=== PATIENT | male | born 1930 | race Caucasian/White ===

== ENCOUNTER 2018-03-12 22:06 | Inpatient (IN) | payer MEDICARE ==
[~2018-03-12] VITALS: Ht 180.3 cm; Wt 114.3 kg
[~2018-03-12 22:06] MED LIST: ASPIR 8181 M1 PO; B-121000 MCG PO; COLACE100 MG PO; COMBIVENT RESPIM4 GM IH; COZAAR 50 MG TA50 M2 PO; D3 + K2 DOTS 11 EACH PO; DESONIDE CR. 1515 GM TOP; FISH OIL 1,001000 M2 PO; FOLIC ACID 40400 MCG PO; KETOCONAZOLE60 GM TP; LANTUS100 UNIT/M SUBQ; LASIX 40 MG TAB40 M2 PO; MAGOX 400400 MG PO; MELATONIN3 MG PO; METFORMIN HCL500 MG PO; MIRALAX17 GM PO; NORVASC10 MG PO; NOVOLIN 70100 UNIT/1 SQ; OMEPRAZOLE20 M1 PO; ZOCOR20 MG PO
[2018-03-12] MEDS ORDERED: COMBIVENT INH (22:19)
[2018-03-12] MEDS ORDERED: PROSCAR 5MG TABL5 MG PO (22:20)
[2018-03-12] MEDS ORDERED: FISH OIL 1,001000 M2 PO (22:20)
[2018-03-12] MEDS ORDERED: FLUOCINOLONE AC15 GM (22:22)
[2018-03-12] MEDS ORDERED: VITAMIN D3400 UNIT PO (22:24)
[2018-03-12] MEDS ORDERED: MACROBID 100 M100 M2 PO (22:24)
[2018-03-12 23:05] LABS: ABSOLUTE EOSINOPHILS 0.1 thou/uL (0.0-0.7); ABSOLUTE LYMPHOCYTES 0.9 thou/uL (0.8-5.3); ABSOLUTE MONOCYTES 0.4 thou/uL (0.0-1.2); BASOPHILS 0.8 %; EOSINOPHILS 3.1 %; HEMOGLOBIN 13.4 gm/dL (14.0-18.0); LYMPHOCYTES 20.3 %; MCH 31.2 pg (26.0-34.0); MCHC 33.5 g/dL (28.0-37.0); MCV 93.2 fL (80.0-100.0); MPV 8.3 fl. (7.2-11.1); NUCLEATED RBCS 0 /100WBC; PLATELET COUNT* 107 thou/uL (150-400); POLYS 66.8 %; RDW-CV 13.3 % (10.5-14.5); WBC 4.4 thou/uL (4.0-11.0)
[2018-03-12 23:08] LABS: ANION GAP 6 mmol/L (7-16); BUN 32 mg/dL (7-18); CALCIUM 8.8 mg/dL (8.5-10.1); CHLORIDE 99 mmol/L (98-107); CO2 32 mmol/L (21-32); CREATININE 1.4 mg/dL (0.6-1.3); GLUCOSE 204 mg/dL (70-99); SODIUM 137 mmol/L (136-145)
[2018-03-12 23:09] LABS: POTASSIUM 4.7 mmol/L (3.5-5.1)
[2018-03-12 23:17] LABS: PROTIME 10.1 Seconds (9.20-11.50)
[2018-03-12 23:19] LABS: ALKALINE PHOSPHATASE 98 U/L (46-116); LIPASE 110 U/L (73-393); NT-PRO BRAIN NAT PEPTIDE 198 pg/mL (<300); SGOT 50 U/L (15-37); SGPT 46 U/L (30-65); TOTAL BILIRUBIN 0.6 mg/dL (<0.1-1.0); TOTAL PROTEIN 7.9 g/dL (6.4-8.2); TROPONIN-I LEVEL <0.06 ng/mL (<0.06)
[2018-03-13 01:15] VITALS: BP 145/46
[2018-03-13 01:31] VITALS: BP 149/60
[2018-03-13 04:00] VITALS: BP 133/64
[2018-03-13 08:00] VITALS: BP 156/60
--- NOTE | 2018-03-13 09:41 | EKG ---
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1930 Requested By: Mary Jane Garrett Order Number: [id number] MD: Perry Gonzales Measurements Intervals [place] Rate: 79 P: 74 IN: 170 QRS: 0 QRSD: 157 T: 102 QT: 429 QTc: 492 Interpretive Statements Sinus rhythm Left bundle branch block Compared to ECG 09/12/2016 22:58:21 Atrial abnormality no longer present Electronically Signed On 03-13-2018 9:41:16 CDT by Perry Gonzales [email or web address] <ELECTRONICALLY SIGNED> By: Perry Gonzales MD, [facility] 03/13/18 0941 2212 2212 Perry Gonzales MD, [facility] /EPI
[2018-03-13 11:00] VITALS: BP 136/57
--- NOTE | 2018-03-13 12:09 | CON ---
[address] [address] CONSULTATION Name: ALEIDA BOBO Room: [address] IN .R.#: [id number] Admission: 03/13/18 Attend Phys: Jamila Maurer MD Discharge: 03/16/18 Date of : [birth year] Report #: [id number] THIS REPORT FOR: //name// CC: Cornelius Ley MD CARDIOLOGY CONSULTATION INDICATION: Chest pain. HISTORY OF PRESENT ILLNESS: The patient is a very pleasant 88-year-old gentleman with a history of coronary artery disease. He reports myocardial infarction 30 years ago, for which he initially had percutaneous transluminal coronary angioplasty. He describes having a stent placed possibly a few years later. He states that he has not had any intervention since that time. He has had subsequent stress testing that has been unrevealing. Cardiac risk factors include hypertension, diabetes and dyslipidemia. He quit smoking remotely. Family history was also positive for coronary artery disease. He began to have midsternal chest pain and pressure last night. [facility], who felt he may be having a heart attack and brought him to the hospital. His pain has since resolved. His troponins are unremarkable. EKG shows sinus rhythm with left bundle branch block. At the time of interview, the patient is without cardiac complaint. PAST MEDICAL HISTORY: 1. Coronary artery disease. 2. Type 2 diabetes mellitus. 3. COPD. 4. Chronic renal insufficiency, creatinine 1.4. 5. GERD. 6. Arthritis. 7. Peripheral neuropathy. HOME MEDICATIONS: Amlodipine 10 mg daily, losartan 100 mg daily, folate 400 mcg daily, vitamin B12 at 1000 mcg daily, vitamin D3/K2 at 1000 units daily, furosemide 40 mg daily, MiraLax 17 grams daily, Colace 100 mg at bedtime, melatonin 3 mg at bedtime, desonide cream applied topically as directed, ketaconazole applied topically as directed, Lantus at bedtime, Novolin 70/30 q.i.d., aspirin 81 mg daily, simvastatin 20 mg at bedtime, omeprazole 20 mg daily, magnesium oxide 400 mg b.i.d., Combivent inhaler 1 puff q.i.d., fish oil 1000 mg daily, metformin 1000 mg b.i.d., finasteride 5 mg daily, fluocinolone topically as directed, Macrobid 100 mg b.i.d. and vitamin D3 at 400 units daily. ALLERGIES: LISINOPRIL. [address] [place] [address] CONSULTATION Name: JERAMIE,KAY Jalen Room: [address]#: [id number] Admission: 03/13/18 Attend Phys: Jamila Maurer MD Discharge: 03/16/18 Date of : [birth year] Report #: [id number] FAMILY HISTORY: The patient's father had a heart attack at age 85. SOCIAL HISTORY: The patient is . He and his live in [place], [place]. 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 He does not smoke. He does not drink alcohol. REVIEW OF SYSTEMS: A 14-point review of systems is positive for chest discomfort, as outlined above, dyspnea on exertion and orthopnea. He reports type 2 diabetes mellitus, insulin requiring. He reports venous blood clots remotely. He reports that he wears glasses, without acute visual loss. He has decreased hearing. PHYSICAL EXAMINATION: VITAL SIGNS: Stable. Blood pressure 156/60, pulse 65 and regular. GENERAL: This is a moderately obese, pleasant elderly white male in no distress. Mood and affect appropriate. HEENT: The patient is wearing glasses. Extraocular muscles intact. Mucous membranes are moist. NECK: Examination of the neck shows no jugular venous distention. I do not appreciate carotid bruit. CHEST: Examination of the chest reveals diminished breath sounds throughout with slight expiratory wheezes. CARDIAC EXAMINATION: Reveals a regular rhythm with normal S1 and S2. I do not appreciate gallop or murmur. ABDOMEN: Examination of the abdomen reveals normal bowel sounds. The abdomen is protuberant. EXTREMITIES: Examination of the extremities shows chronic venous stasis changes and 1-2+ pitting edema to the mid tibia bilaterally. SKIN: Dry. RADIOGRAPHIC DATA: A 12-lead EKG shows sinus rhythm with left bundle branch block. LABORATORY DATA: Labs are reviewed. Sodium 137, potassium 4.7, chloride 99, bicarbonate 32, BUN 32, creatinine 1.4 and serum glucose 204. LFTs within normal limits. Calcium and magnesium within normal limits. Troponin less than 0.06. NT-proBNP 198. Coags within normal limits. White blood cell count 4.4, hemoglobin 13.4 and platelet count 107,000. IMPRESSION AND RECOMMENDATIONS: 1. Chest discomfort, concerning for possible angina. The patient's initial troponin is unremarkable. We will repeat another troponin at this time. EKG shows a left bundle branch block. We will obtain noninvasive stress testing, if the patient's enzymes remain unremarkable. 2. Hypertension. Continue medications outlined above [place] [address] CONSULTATION Name: ALEIDA BOBO Room: [address] IN [facility]#: [id number] Admission: 03/13/18 Attend Phys: Jamila Maurer MD Discharge: 03/16/18 Date of : [birth year] Report #: [id number] needed. 3. Dyslipidemia. The patient currently on simvastatin. We will continue and check fasting lipid profile. 4. Diabetes per primary physician. 5. Chronic left bundle branch block. 6. Chronic renal insufficiency, appears stable. <ELECTRONICALLY SIGNED> By: Perry Gonzales MD, FACC 03/13/18 1209 1106 1200[facility] Sofy Gonzales MD, FACC /nt
[2018-03-13 19:50] VITALS: BP 144/67
[2018-03-14 00:47] VITALS: BP 107/46
[2018-03-14 04:00] VITALS: BP 105/60
[2018-03-14 05:24] LABS: CHOLESTEROL 115 mg/dL (<200); HDL CHOLESTEROL 34 mg/dL (>40); LDL CHOLESTEROL 48 mg/dL (<100); TC:HDL 3.4 Ratio (Not establshd); TRIGLYCERIDE 165 mg/dL (<150); VLDL 33 mg/dL (<40)
[2018-03-14 05:29] LABS: SERUM ASSESSMENT Clear
[2018-03-14 08:00] VITALS: BP 125/55
[2018-03-14 11:00] VITALS: BP 126/48
[2018-03-14 16:00] VITALS: BP 118/53
[2018-03-14 19:50] VITALS: BP 126/52
[2018-03-15] VITALS: BP 125/53
[2018-03-15 02:05] LABS: GLYCOHEMOGLOBIN (HGB A1C) 7.2 % (4.8-5.6)
[2018-03-15 03:36] VITALS: BP 110/47
[2018-03-15 08:00] VITALS: BP 135/59
[2018-03-15 12:00] VITALS: BP 121/52
[2018-03-15 16:00] VITALS: BP 115/97
[2018-03-15 18:00] LABS: HEMATOCRIT 39.5 % (42.0-52.0); HEMOGLOBIN 13.1 gm/dL (14.0-18.0); MCH 31.1 pg (26.0-34.0); MCHC 33.1 g/dL (28.0-37.0); MCV 93.9 fL (80.0-100.0); MPV 8.2 fl. (7.2-11.1); NUCLEATED RBCS 0 /100WBC; PLATELET COUNT* 103 thou/uL (150-400); RBC 4.21 mil/uL (4.50-6.00); RDW-CV 13.8 % (10.5-14.5); WBC 5.3 thou/uL (4.0-11.0)
[2018-03-15 18:14] LABS: CALCIUM 9.3 mg/dL (8.5-10.1); CREATININE 1.5 mg/dL (0.6-1.3); MAGNESIUM 2.4 mg/dL (1.8-2.4); POTASSIUM 4.5 mmol/L (3.5-5.1); TOTAL BILIRUBIN 0.7 mg/dL (<0.1-1.0); TOTAL PROTEIN 7.8 g/dL (6.4-8.2)
[2018-03-15 18:17] LABS: ABSOLUTE LYMPHOCYTES 0.6 thou/uL (0.8-5.3); ABSOLUTE MONOCYTES 0.3 thou/uL (0.0-1.2); ABSOLUTE NEUTROPHILS 4.3 thou/uL (1.6-8.1); PLATELET ESTIMATE ADEQUATE
[2018-03-15 20:00] VITALS: BP 105/55
[2018-03-16] VITALS: BP 109/46; BP 162/66
[2018-03-16 03:44] VITALS: BP 116/62
[2018-03-16 08:21] VITALS: BP 126/60
[2018-03-16 12:14] VITALS: BP 105/49
--- NOTE | 2018-03-16 15:15 | CARDNUC ---
[place] [address] CARDIAC NUCLEAR IMAGING REPORT Name: ALEIDA BOBO Room: [address]#: [id number] Admission: 03/13/18 Attend Phys: Jamila Maurer, Discharge: 03/16/18 Date of : [birth year] Date of Service: 03/16/18 1515 Report #: [id number] THIS REPORT FOR: //name// APPROVED REPORT Study performed: 03/15/2018 12:48:00 Indication: Chest pain, CAD Patient Location: In-Patient Room #: 227 Stress Tech: April Paz Stress Nurse: Neisha Owens RN NM Tech:GERARDO Ng Ht: 5 ft 11 in Wt: 252 lbs BSA: 2.33 m2 BMI: 35.1 Medical History Medical History: CAD s/p RI, CAD s/p stent, HTN, Hyperlipidemia, Diabetic Insulin, COPD Medications: amlodipine, atorvastatin, losartan, asa Allergies: No known drug allergies Cardiac Risk Factors: Age,, Diabetes (insulin), HTN, Hyperlipidemia Previous Cardiac Procedures: Myocardial infarction, PCI Exercise History: Sedentary Resting Data Rest SPECT myocardial perfusion imaging was performed in supine position 30 minutes following the intravenous injection of 38.2 mCi of Tc-99m Sestamibi. Time of rest injection: 1230 Date: 03/16/2018 Time of rest imagin The images were gated to evaluate regional wall motion and calculate left ventricular ejection fraction. Administration Route: IV Administration Site: Right Pharmacologic Stress Pharmacologic stress test was performed by injecting Regadenoson 0.4 mg IV push over 10-15 seconds immediately followed by the intravenous injection of 33.8 mCi of Tc-99m Sestamibi. Time of stress injection: 1600 Date: 03/15/2018 Administration Route: IV Administration Site: [place] [address] CARDIAC NUCLEAR IMAGING REPORT Name: ALEIDA BOBO Room: [address]#: [id number] Admission: 03/13/18 Attend Phys: Jamila Maurer, Discharge: 03/16/18 Date of : [birth year] Date of Service: 03/16/18 1515 Report #: [id number] Gated Stress SPECT was performed 45 minutes after stress injection. The images were gated to evaluate regional wall motion and calculate left ventricular ejection fraction. Stress Test Details Stress Test: Pharmacologic stress testing performed using 0.4 mg of regadenoson per 5 mL given IV over 10 seconds. Reason for pharmacologic stress test: LBBB. Reversal agent Aminophyline 50 mg, given intravenously for headache, hypotension. HR Resting HR: 76 bpm Max Heart Rate (APMHR): 132 bpm Max HR Achieved: 88 bpm Target HR (85% APMHR): 112 bpm % of APMHR: 66 Recovery HR: 77 bpm BP Resting BP: 126/58 mmHg Max BP: 107/50 mmHg ECG Resting ECG: Sinus Rhythm, LBBB Stress ECG: Sinus Rhythm, LBBB ST Change: None Arrhythmia: None Recovery ECG: Sinus Rhythm, LBBB Recovery ST Change: None Recovery Arrhythmia: None Clinical Reason for Termination: Completed protocol Stress Symptoms: Headache, hypotension Exercise duration: 0 min sec Exercise capacity: 1.0 METs The patient tolerated Lexiscan infusion without symptoms. Nurse Comments Patient had no chest pain, but did complain of MIRANDA and lightheadness, bp 99/48, post lexiscan, 50mg aminophylline IV for c/o at 1615. Patient states feels much better at 1617, bp 115/59. Stress ECG Conclusion The baseline 12-lead electrocardiogram shows sinus rhythm with left bundle-branch block. EKGs obtained during and post Lexiscan infusion show sinus rhythm with left bundle-branch block[place] [address] CARDIAC NUCLEAR IMAGING REPORT Name: ALEIDA BOBO Room: [address] IN [facility].#: [id number] Admission: 03/13/18 Attend Phys: Jamila Maurer, Discharge: 03/16/18 Date of : [birth year] Date of Service: 03/16/18 1515 Report #: [id number] significant stress-induced arrhythmias. Study Quality Study: Good Artifact: No artifact Study Data At rest, the left ventricular ejection fraction was 35%.. Post stress, the left ventricular ejection was 29%.. TID = 1.05. Perfusion Myocardial perfusion defect show a severe in intensity moderate size fixed defect involving the anterior wall and apex. No reversible defects are identified. Wall Motion On gated studies there is severe global hypokinesis with akinesis of the septum as well as distal to apical anterior wall and apex. Nuclear Conclusion ECG Findings: non-diagnostic Clinical Findings: negative for ischemia Nuclear Findings: negative for ischemia Exercise Capacity: not assessed Left Ventricular Function: abnormal Risk Study: high Myocardial perfusion images show a fixed defect involving the distal anterior wall and apex consistent with prior infarct. No reversible defects are identified. There is severe left ventricular systolic dysfunction consistent with ischemic cardiomyopathy. This is a high risk study based on severe left ventricular systolic dysfunction. Interpreted by: Perry Gonzales M.D. [facility] Electronically Approved: 03/16/2018 15:15:19 <Conclusion> The baseline 12-lead electrocardiogram shows sinus rhythm with left bundle-branch block. EKGs obtained during [place] [address] CARDIAC NUCLEAR IMAGING REPORT Name: ALEIDA BOBO Room: [address] IN [facility]#: [id number] Admission: 03/13/18 Attend Phys: Jamila Maurer, Discharge: 03/16/18 Date of : [birth year] Date of Service: 03/16/18 1515 Report #: [id number] show sinus rhythm with left bundle-branch block. There were no significant stress-induced arrhythmias. <ELECTRONICALLY SIGNED> By: Perry Gonzales MD, FACC 03/16/18 1515 1515 1515 Perry Gonzales MD, FACC /INF
[2018-03-16 15:19] VITALS: BP 105/49
--- NOTE | 2018-03-23 16:18 | CON ---
[address] [address] CONSULTATION Name: ALEIDA BOBO Room: [address] IN M.R.#: [id number] Admission: 03/13/18 Attend Phys: Jamila Maurer MD Discharge: 03/16/18 Date of : [birth year] Report #: [id number] THIS REPORT FOR: //name// CC: Jamila Ley MD DICTATED BY: Paloma Salcedo [facility] DATE OF SERVICE: 03/15/2018 Please note at the time of this dictation, the patient was seen and physically examined by myself. REASON FOR CONSULTATION: Constipation, possible fecal impaction. HISTORY OF PRESENT ILLNESS: This is an 88-year-old male presented to the Emergency Room with intermittent chest pain in which she had been having pressure and onset for about an hour and some shortness of air. The patient has a history of having OR back in the late . He denied any nausea, vomiting or any abdominal pain at that time. In discussing with the patient, he has never had an EGD or colonoscopy done in the past. He states that his bowels normally move about every 3-4 days and then, he will sometimes have to try MiraLax, stool softeners to help get his bowels to move, which are usually hard and dry. The patient has already received a suppository this morning, but was straining and it was expelled already. He is pending going down for a stress test at this time. ALLERGIES: LISINOPRIL. MEDICATIONS: From home include Norvasc, Cozaar, folic acid, B12, vitamin D, Lasix, MiraLax, Colace, melatonin, desonide cream, ketaconazole cream, Lantus, NovoLog, aspirin, Zocor, omeprazole, magnesium oxide, Combivent, fish oil, Glucophage, Proscar, . PAST MEDICAL HISTORY: COPD, adrenal abnormality, history of pancreatic cyst, history of anemia, hyperlipidemia, chronic kidney disease, GERD, arthritis, history of an OR with stent many years ago and angioplasty, diabetic and some peripheral neuropathy. PAST SURGICAL HISTORY: Negative. FAMILY HISTORY: Mother, breast cancer. SOCIAL HISTORY: Denies any alcohol, tobacco or illegal drug use and [place] [address] CONSULTATION Name: JERAMIE,ALEIDA D Room: [address]#: [id number] Admission: 03/13/18 Attend Phys: Jamila Maurer MD Discharge: 03/16/18 Date of : [birth year] Report #: [id number] REVIEW OF SYSTEMS: Twelve-point review of systems is essentially negative except what is mentioned in the HPI. PHYSICAL EXAMINATION: VITAL SIGNS: Temperature 36.9, pulse 68, respirations 18, blood pressure 135/59. HEART: Regular rate and rhythm. LUNGS: Diminished, but clear. ABDOMEN: Very round, positive bowel sounds in all 4 quadrants with no masses or some slight tenderness noted in the left lower quadrant area. LABORATORY DATA: Hemoglobin 13.4, hematocrit 40, white count is 4.4, platelets 107. PT is 10.1. INR is 1.0. Sodium 137, potassium 4.7, chloride 99, CO2 32, BUN is 32, creatinine 1.4, GFR is 48, glucose is 204. LFTs: Total bilirubin 0.6, alkaline phosphatase 98, ALT 46, AST is 50. CT of the abdomen and pelvis, mainly shows constipation throughout. IMPRESSION: 1. Constipation usual 3-4 days. 2. Thrombocytopenia. 3. Family history, mother, breast cancer. 4. Chest pain, history of myocardial infarction. PLAN: 1. Dulcolax tablets 20 mg now. 2. If no results from above, we will give the patient a soapsuds enema. 3. The patient needs a better bowel regimen, 2-3 senna b.i.d. secondary to his renal function. No MiraLax. Thank you for allowing us to participate in this patient's care. Please do not hesitate to call with any questions in regard to this consult. <ELECTRONICALLY SIGNED> By: Sunshine Yen MD 03/23/18 1618 1207 1856Sunshine Yen MD /nt
--- NOTE | 2018-03-23 16:18 | CON ---
[address] [address] CONSULTATION Name: ALEIDA BOBO Room: [address] IN M.R.#: [id number] Admission: 03/13/18 Attend Phys: Jamila Maurer MD Discharge: 03/16/18 Date of : [birth year] Report #: [id number] THIS REPORT FOR: //name// CC: Jamila Ley DATE OF SERVICE: 03/15/2018 ADDENDUM I have personally seen and examined the patient and reviewed labs and imaging. The patient with no previous history of endoscopic evaluation, who presents with abdominal pain and constipation. Based on imaging, he has fecal impaction. He was given some stool softener and has had a small bowel movement. Since the patient is not interested in any procedures, we will consider to treat him conservatively with using bowel regimen. We will monitor him closely and make further recommendations. <ELECTRONICALLY SIGNED> By: Sunshine Yen MD 03/23/18 1618 1529 0224Sunshine Yen MD /nt
== END 2018-03-16 16:00 | disposition home or self-care (01) | DRG 391 ==
LOC: M.ERS 22:06 → M.TBA-ER 03-13 00:29 → M.2W 03-13 00:29 → EDSEX 03-16 16:00
PROVIDERS: Family Medicine; Internal Medicine; Internal Medicine Cardiovascular Disease; Personal Emergency Response Attendant; ADMIT Internal Medicine
DX: K21.9 Gastro-esophageal reflux disease without esophagitis (principal); J96.90 Respiratory failure, unspecified, unspecified whether with hypoxia or hypercapnia; K86.2 Cyst of pancreas; K59.00 Constipation, unspecified; E78.5 Hyperlipidemia, unspecified; I25.2 Old myocardial infarction; D69.6 Thrombocytopenia, unspecified; E11.65 Type 2 diabetes mellitus with hyperglycemia; N18.3 Chronic kidney disease, stage 3 (moderate); K86.89 Other specified diseases of pancreas; J44.9 Chronic obstructive pulmonary disease, unspecified; D64.9 Anemia, unspecified; I12.9 Hypertensive chronic kidney disease with stage 1 through stage 4 chronic kidney disease, or unspecified chronic kidney disease; E11.22 Type 2 diabetes mellitus with diabetic chronic kidney disease; I44.7 Left bundle-branch block, unspecified; E11.42 Type 2 diabetes mellitus with diabetic polyneuropathy; M19.90 Unspecified osteoarthritis, unspecified site; I25.10 Atherosclerotic heart disease of native coronary artery without angina pectoris; Z87.891 Personal history of nicotine dependence; Z79.2 Long term (current) use of antibiotics; Z79.82 Long term (current) use of aspirin; Z88.8 Allergy status to other drugs, medicaments and biological substances; Z79.899 Other long term (current) drug therapy; Z80.3 Family history of malignant neoplasm of breast

== ENCOUNTER 2019-09-14 09:19 | Inpatient (IN) | payer OTHER ==
[2019-09-14] VITALS (30 sets, daily range): BP systolic 103–191; BP diastolic 42–114
[~2019-09-14] VITALS: Ht 182.9 cm; Wt 105.2 kg
[~2019-09-14 09:19] MED LIST changes: +COMBIVENT INH; +COZAAR 50 MG TA50 M1 PO; -COZAAR 50 MG TA50 M2 PO; +FLUOCINOLONE AC15 GM TOP; +MACROBID 100 M100 M2 PO; +PROSCAR 5MG TABL5 MG PO; +VITAMIN D3400 UNIT PO
[2019-09-14 09:41] LABS: ABSOLUTE BASOPHILS 0.1 thou/uL (0.0-0.2); ABSOLUTE EOSINOPHILS 0.2 thou/uL (0.0-0.7); ABSOLUTE LYMPHOCYTES 1.9 thou/uL (0.8-5.3); ABSOLUTE MONOCYTES 0.6 thou/uL (0.0-1.2); ABSOLUTE NEUTROPHILS 6.2 thou/uL (1.6-8.1); BASOPHILS 0.6 %; EOSINOPHILS 2.4 %; HEMATOCRIT 45.1 % (42.0-52.0); HEMOGLOBIN 14.9 gm/dL (14.0-18.0); LYMPHOCYTES 21.3 %; MCH 30.8 pg (26.0-34.0); MCV 93.4 fL (80.0-100.0); MONOCYTES 7.1 %; NUCLEATED RBCS 0 /100WBC; PLATELET COUNT* 160 thou/uL (150-400); POLYS 68.6 %; RBC 4.83 mil/uL (4.50-6.00); WBC 9.1 thou/uL (4.0-11.0)
[2019-09-14 09:50] LABS: CREATININE 1.3 mg/dL (0.6-1.3)
[2019-09-14 09:51] LABS: APTT 25.8 Seconds (25.0-31.3); PROTIME 10.7 Seconds (9.20-11.50)
[2019-09-14 10:01] LABS: ALBUMIN 3.7 g/dL (3.4-5.0); TOTAL BILIRUBIN 0.4 mg/dL (<0.1-1.0); TOTAL PROTEIN 7.7 g/dL (6.4-8.2)
[2019-09-14 10:32] LABS: BE 3.5 mmol/L (-2 to +3)
[2019-09-14 10:38] LABS: pH 7.216 (7.340-7.450)
[2019-09-14 10:39] LABS: PCO2 85.8 mmHg (35.0-45.0); PO2 124.3 mmHg (75.0-100.0)
--- NOTE | 2019-09-14 10:54 | NUR ---
PT HAS PICC LINE, 5 ROMANSH, IN RIGHT UPPER ARM. PERFORMED BY [facility] FROM [facility].
[2019-09-14 13:01] LABS: BE 4.5 mmol/L (-2 to +3); PO2 111.1 mmHg (75.0-100.0)
[2019-09-14 13:03] LABS: PCO2 58.6 mmHg (35.0-45.0)
--- NOTE | 2019-09-14 13:17 | NUR ---
RIGHT BASILIC VESSEL ACCESSED FOR TRIPLE LUMEN PICC. LINE PRE-TRIMMED TO 41CM AND ADVANCED TO THE ZERO TEN WITH NO RESISTANCE MET. UPPER ARM CIRCUMFERENCE ABOVE INSERTION SITE= 13 1/2". SHERLOCK MAGNET AND 3CG CONFIRMTION OF TIP TERMINATION JUST ABOVE THE CAVOATRIAL JUNCTION BY 2-3 CM. GUIDEWIRE REMOVED, LINE FLUSHED AND INSERTION SITE DRESSED. REPORT GIVEN TO ARIANA LARA.
--- NOTE | 2019-09-14 13:33 | EKG ---
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
[2019-09-15] VITALS (87 sets, daily range): BP systolic 73–191; BP diastolic 28–114
[2019-09-15 04:13] LABS: HEMATOCRIT 39.4 % (42.0-52.0); HEMOGLOBIN 13.2 gm/dL (14.0-18.0); MCH 30.6 pg (26.0-34.0); MCHC 33.6 g/dL (28.0-37.0); MPV 8.3 fl. (7.2-11.1); RBC 4.33 mil/uL (4.50-6.00); RDW-CV 13.9 % (10.5-14.5)
[2019-09-15 04:27] LABS: ALBUMIN 3.1 g/dL (3.4-5.0); CALCIUM 8.5 mg/dL (8.5-10.1); CREATININE 1.3 mg/dL (0.6-1.3); TOTAL BILIRUBIN 0.5 mg/dL (<0.1-1.0); TOTAL PROTEIN 6.4 g/dL (6.4-8.2)
[2019-09-15 04:29] LABS: POTASSIUM 3.5 mmol/L (3.5-5.1)
--- NOTE | 2019-09-15 07:34 | NUR ---
ASSESSMENTS CHARTED. PATIENT REMAINS ON VENTILATOR FOR THE SHIFT. ATTEMPTED TO TAKE PATIENT OFF PROPOFOL AND SWITCH TO PRECEDEX THIS SHIFT PER DR ORDERS. ATTEMPT WAS UNSUCCESSFUL THE PATIENT WAS WIDE AWAKE, THRASHING AND RISKING SELF EXTUBATION WHILE MAXED ON PRECEDEX. ORDERS RECEIVED TO RESTART PROPOFOL AND ADD VERSED AND FENTANYL PUSHES. THIS WAS BETTER FOR THE PATIENT DURING THE SHIFT AND KEPT THE PATIENT CALM. ET TUBE AND OG STILL IN PLACE. RESTRAINTS IN PLACE. WCTM
[2019-09-15 08:38] LABS: BE 4.4 mmol/L (-2 to +3); PCO2 39.7 mmHg (35.0-45.0); pH 7.471 (7.340-7.450)
--- NOTE | 2019-09-15 09:45 | NUR ---
PT COMPLETED SUCCESSFUL WEENING TRIAL.PULMONARY GAVE OK FOR PT TO BE EXTUBATED.RT EXTUBATED PT WITH NO COMPLICATIONS.PT PLACED ON 4L O2 NC.
[2019-09-15 10:06] LABS: CHOLESTEROL 134 mg/dL (<200); HDL CHOLESTEROL 57 mg/dL (>40); LDL CHOLESTEROL 61 mg/dL (<100); TC:HDL 2.4 Ratio (Not establshd); TRIGLYCERIDE 84 mg/dL (<150); VLDL 17 mg/dL (<40)
[2019-09-15 10:08] LABS: SERUM ASSESSMENT Clear
--- NOTE | 2019-09-15 10:12 | NUR ---
ICU Rounds: Pt lives at home with his who is blind. Pt dtr and other family visiting pt today. Pt is alert and oriented. Pt extubated this morning. Pt has cane and oxygen, malloy, heparin drip. SW to continue to follow to assist with safe dc planning.
--- NOTE | 2019-09-15 15:15 | EKG ---
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: SYBIL : 1930 Requested By: Debbie Spencer Order Number: [id number] Kenna MD: Macario Chahal Measurements Intervals [place] Rate: 77 P: 10 [place]: 163 QRS: -30 QRSD: 133 T: 99 QT: 480 QTc: 544 Interpretive Statements Sinus rhythm poor r wave progression nonspecific st changes Compared to ECG 09/14/2019 09:20:11 Sinus tachycardia no longer present Atrial premature complex(es) no longer present Electronically Signed On 09-15-2019 15:14:39 OPTICAL TECHNICIAN by Macario Chahal [email or web address] <ELECTRONICALLY SIGNED> By: Macario Chahal MD, FAC 09/15/19 1514 0311 0311 Macario Chahal MD, [facility] /EPI
--- NOTE | 2019-09-15 16:22 | NUR ---
VSS.EDGE CUTTER IN PLACE WITH NO CHANGES THIS SHIFT.PT REMAINS ON 3L O2 NC.PT PROGRESSING TOWARDS GOALS.NO C/O PAIN.RIGHT UPPER ARM PICC SECURE AND PATENT.IV ANTIBIOTICS GIVEN.HEPARIN DRIP D/C PER CARDIOLOGY.PT TOLERATING CLEAR LIQUIDS.RUBIO SECURE AND PATENT.ECHO COMPLETED.PT INFORMED OF PLAN OF CARE AND COMMUNICATES UNDERSTANDING.HOURLY ROUNDING COMPLETED FOR PT SAFETY.CALL LIGHT AND FALL PRECAUTIONS IN PLACE.WILL CONTINUE TO MONITOR FOR DURAITON OF SHIFT.
--- NOTE | 2019-09-15 16:49 | 2DMMODE ---
[place] [address] 2 D/M-MODE ECHOCARDIOGRAM Name: ALEIDA BOBO Room: [address] IN [facility]#: [id number] Admission: 09/14/19 Attend Phys: Debbie rivera Sa Discharge: Date of : 01/25/30 Date of Service: 09/15/19 1648 Report #: [id number] THIS REPORT FOR: //name// APPROVED REPORT Study performed: 09/15/2019 15:14:01 EXAM: Comprehensive 2D, Doppler, and color-flow Echocardiogram Patient Location: In-Patient Room #: [facility] Status: routine BSA: 2.35 HR: 92 bpm BP: 136/58 mmHg Rhythm: NSR Other Information Technically limited study due to poor endocardial definition. Indications Dyspnea Echo Enhancing Agent Indication: Endocardial border delineation Agent(s) / Amount(s) Used: Optison 3 cc 2D Dimensions IVSd: 15.65 (7-11mm) LVOT Diam: 21.08 (18-24mm) LVDd: 55.64 mm PWd: 10.84 (7-11mm) Ascending Ao: 34.47 (22-36mm) LVDs: 29.55 (25-40mm) Aortic Root: 33.32 mm Volumes Left Atrial Volume (Systole) LA ESV Index: 31.00 mL/m2 Aortic Valve AoV Peak Sandoval.: 1.29 m/s AO Peak Gr.: 6.65 mmHg LVOT Max P.17 mmHg AO Mean Gr.: 3.74 mmHg LVOT Mean P.83 mmHg LVOT Max V: 1.14 m/s AO V2 VTI: 25.48 cm LVOT Mean V: 0.79 m/s JAMISON (VTI): 3.18 cm2 LVOT V1 VTI: 23.22 [place] [address] 2 D/M-MODE ECHOCARDIOGRAM Name: ALEIDA BOBO Room: [address] IN .R.#: [id number] Admission: 09/14/19 Attend Phys: Debbie rivera Sa Discharge: Date of : 01/25/30 Date of Service: 09/15/19 1648 Report #: [id number] Mitral Valve E/A Ratio: 0.55 MV Decel. Time: 231.79 ms MV E Max Sandoval.: 0.57 m/s MV PHT: 67.22 ms MVA (PHT): 3.27 cm2 TDI E/Lateral E': 6.33 E/Medial E': 5.70 Medial E' Sandoval.: 0.10 m/s Lateral E' Sandoval.: 0.09 m/s Pulmonary Valve PV Peak Sandoval.: 1.26 m/s PV Peak Gr.: 6.38 mmHg Left Ventricle The left ventricle is normal size. There is akinesis noted in the apex and distal septal, anteroseptal and anterior wilkins. There is normal left ventricular wall thickness. Left ventricular systolic function is mildly decreased. LVEF is 45-50%. Grade I - abnormal relaxation pattern. Right Ventricle The right ventricle is normal size. The right ventricular systolic function is normal. Atria The left atrium size is normal. The right atrium size is normal. Aortic Valve Mild aortic valve sclerosis. No aortic regurgitation is present. There is no aortic valvular stenosis. Mitral Valve The mitral valve is normal in structure. Trace mitral regurgitation. No evidence of mitral valve stenosis. Tricuspid Valve The tricuspid valve is normal in structure. Unable to assess PA pressure. Trace tricuspid regurgitation. Pulmonic Valve The pulmonary valve is normal in structure. There is no pulmonic [place] [address] 2 D/M-MODE ECHOCARDIOGRAM Name: JERAMIE,KAY Jalen Room: [address]#: [id number] Admission: 09/14/19 Attend Phys: Debbie rivera Sa Discharge: Date of : 01/25/30 Date of Service: 09/15/19 1648 Report #: [id number] Great Vessels The aortic root is normal in size. IVC is normal in size and collapses >50% with inspiration. Pericardium There is no pericardial effusion. <Conclusion> The left ventricle is normal size. There is normal left ventricular wall thickness. Left ventricular systolic function is mildly decreased. LVEF is 45-50%. Grade I - abnormal relaxation pattern. Mild aortic valve sclerosis. There is no aortic valvular stenosis. Trace mitral regurgitation. Trace tricuspid regurgitation. IVC is normal in size and collapses >50% with inspiration. <ELECTRONICALLY SIGNED> By: Perry Gonzales MD, [facility] 09/15/19 1648 47 164 Perry Gonzales MD, FACC /INF
[2019-09-16] VITALS (31 sets, daily range): BP systolic 119–155; BP diastolic 25–72
[2019-09-16 02:10] LABS: GLYCOHEMOGLOBIN (HGB A1C) 6.1 % (4.8-5.6)
[2019-09-16 06:12] LABS: HEMATOCRIT 36.5 % (42.0-52.0); HEMOGLOBIN 12.2 gm/dL (14.0-18.0); MCH 30.7 pg (26.0-34.0); MCHC 33.4 g/dL (28.0-37.0); MCV 91.8 fL (80.0-100.0); MPV 8.2 fl. (7.2-11.1); NUCLEATED RBCS 0 /100WBC; PLATELET COUNT* 114 thou/uL (150-400); RBC 3.97 mil/uL (4.50-6.00); RDW-CV 14.2 % (10.5-14.5); WBC 10.1 thou/uL (4.0-11.0)
--- NOTE | 2019-09-16 06:38 | NUR ---
ASSESSMENTS CHARTED. PATIENT REMAINED IN BED ATTEMPTING TO SLEEP FOR THE SHIFT. REFUSED TURNS FOR THE MAJORITY OF THE NIGHT. NO SIGNIFICANT EVENTS OCCURRED WITH THE PATIENT THIS SHIFT.
[2019-09-16 06:39] LABS: CALCIUM 8.8 mg/dL (8.5-10.1); CREATININE 1.3 mg/dL (0.6-1.3); POTASSIUM 4.2 mmol/L (3.5-5.1); TOTAL BILIRUBIN 0.4 mg/dL (<0.1-1.0); TOTAL PROTEIN 6.2 g/dL (6.4-8.2)
[2019-09-16 07:51] LABS: ABSOLUTE LYMPHOCYTES 0.3 thou/uL (0.8-5.3); ABSOLUTE MONOCYTES 0.3 thou/uL (0.0-1.2); ABSOLUTE NEUTROPHILS 9.5 thou/uL (1.6-8.1); PLATELET ESTIMATE ADEQUATE
--- NOTE | 2019-09-16 14:12 | NUR ---
ASSUMED CARE OF PATIENT RUBIO DCD UP TO CHAIR DIET ADVANCED TO CARB CONTROL. DENIES SOA OR PAIN.
--- NOTE | 2019-09-16 17:30 | NUR ---
PT. C/O DECREASED USE OF L UE OVER THE LAST YEAR AND HAS DIFFICULTY USING HIS L SHOULDER AND ELBOW. HE HAS PAIN STARTING FROM HIS UPPER TRAPEZIUS SHOOTING INTO HIS SHOULDER WHEN MOVING L UE.
[2019-09-17] VITALS (8 sets, daily range): BP systolic 95–156; BP diastolic 52–88
--- NOTE | 2019-09-17 05:21 | NUR ---
ASSUMED CARE AT 1900H,ON NC AT 3LPM AND WITH SLEEP APNEA NOTED.NO RESPIRATORY DISTRESS.ASSISTED TO COMMODE.PT SLEPT WELL.CONTINUE MONITORING AND TOWARD GOALS.
--- NOTE | 2019-09-17 10:25 | CON ---
[facility] [address] [place] [address] CONSULTATION Name: ALEIDA BOBO Room: [address] ADM IN M.R.#: [id number] Admission: 09/14/19 Attend Phys: Debbie Sullivan Discharge: Date of : 01/25/30 Report #: [id number] THIS REPORT FOR: //name// CC: Dr. Inessa Ley MD DATE OF SERVICE: 09/15/2019 CARDIOLOGY CONSULT INDICATION: Elevated troponin. HISTORY OF PRESENT ILLNESS: The patient is a very pleasant 89-year-old gentleman admitted to the hospital yesterday with acute respiratory distress. The patient does not recall much of the events of his episode yesterday. According to the and family, he had finished cooking his a meal when he stated he was feeling very short of breath. He called EMS who responded fairly promptly and he was placed on CPAP. The patient does not recall the events after this. He was brought to the Emergency Room here at [facility] and found to be stuporous. He was intubated to protect airway. The patient was uneventfully extubated this morning. Troponin on arrival was 0.26 and subsequently 0.25 and 0.27. NT-proBNP was only 214. EKG shows sinus rhythm with left bundle-branch block. I do not appreciate any acute changes. The patient has an ischemic cardiomyopathy with an EF of 25-30% and evidence of prior anterior wall infarct. Stress testing in 03/2018 showed severe left ventricular systolic dysfunction and a fixed anterior wall defect without evidence of ischemia. The patient does not recall having any significant chest pain recently. He does have episodes of shortness of breath, especially when he awakes in the morning. He does use supplemental oxygen at home at 2 liters. Chest x-ray showed some possible atelectasis without other significant abnormality. Presently, the patient is extubated and feeling at baseline. He is not complaining of any chest pain or significant shortness of breath at this time. ALLERGIES: LISINOPRIL. HOME MEDICATIONS: Amlodipine 10 mg daily, aspirin 81 mg daily, vitamin D3 400 units b.i.d., vitamin B12 1000 mcg daily, desonide CR cream topically b.i.d., fish oil 1000 mg daily, Colace 100 mg at bedtime, Proscar 5 mg daily, fluocinolone acetonide cream as directed, folic acid 400 mcg daily, furosemide 40 mg daily, 70/30 Novolin insulin 100 units subcutaneous q.i.d., Lantus [address] [place] [address] CONSULTATION Name: ALEIDA BOBO Room: [address] IN M.R.#: [id number] Admission: 09/14/19 Attend Phys: Debbie Sullivan Discharge: Date of : 01/25/30 Report #: [id number] units subcutaneous daily, Combivent inhaler 1 puff q.i.d., ketaconazole cream topically daily, losartan 100 mg daily, magnesium oxide 400 mg b.i.d., melatonin 3 mg at bedtime, metformin 1000 mg b.i.d., Macrobid 100 mg p.o. b.i.d., omeprazole 20 mg daily, MiraLax 17 grams daily, simvastatin 20 mg at bedtime, vitamin D3/vitamin K2 one tablet p.o. daily. FAMILY HISTORY: The patient's father had heart attack at age 85. SOCIAL HISTORY: The patient is . He lives with his in [place], [place]. He is retired. He does not smoke. He does not drink alcohol. REVIEW OF SYSTEMS: A 14-point review of systems is positive for nonproductive cough, emphysema, dyspnea on exertion, orthopnea, type 2 diabetes mellitus, insulin requiring and decreased hearing. Otherwise, 14-point review of systems was unremarkable. PHYSICAL EXAMINATION: VITAL SIGNS: Blood pressure 131/60, pulse is 88 and regular. GENERAL: This is a pleasant elderly male, in no distress. Mood and affect appropriate. HEENT: The patient is wearing glasses. Extraocular muscles are intact. Mucous membranes are moist. NECK: Shows no jugular venous distention. There are no carotid bruits. CHEST: Reveals somewhat diminished breath sounds without wheezes or rales. CARDIAC: Reveals a regular rhythm with normal S1 and S2. I do not appreciate gallop or murmur. ABDOMEN: Reveals normal bowel sounds. The abdomen is soft and nontender. EXTREMITIES: Shows no significant edema. SKIN: Dry. LABORATORY DATA: A 12-lead EKG shows sinus rhythm with left bundle-branch block. IMPRESSION AND RECOMMENDATION: 1. Elevated troponin, likely due to cardiac strain from hypoxia, consistent with a type 2 myocardial infarction. I doubt this represents an acute coronary syndrome. Would continue conservative management. 2. Ischemic cardiomyopathy, presently appears compensated. He does not appear to have any evidence of acute heart failure. Continue home medications as outlined above. 3. Respiratory distress, etiology not entirely clear. I suspect he had an exacerbation of his emphysema. He appears to be improving. 4. Diabetes per primary physician. 5. Dyslipidemia. Continue simvastatin at current dose. [facility] [address] [place] [address] CONSULTATION Name: ALEIDA BOBO Room: [address] IN ..#: [id number] Admission: 09/14/19 Attend Phys: Debbie Sullivan Discharge: Date of : 01/25/30 Report #: [id number] 6. Chronic left bundle-branch block. 7. Chronic renal insufficiency, appears stable. <ELECTRONICALLY SIGNED> By: Perry Gonzales MD, FACC 09/17/19 1025 1314 [id number] Gonzales MD, FACC /nt
--- NOTE | 2019-09-17 14:12 | NUR ---
PT A/O X4,VSS,TABULAR TYPIST IN PLACE.PT REMAINS ON 3L O2 NC.PT USING RESPIRATORY FLUTTER OFTEN AT BEDSIDE WITH PRODUCTIVE COUGH.PT PROGRESSING TOWARDS GOALS.NO C/O PAIN.PT LEFT ARM HAS EDEMA AND IS WEAK.PT STATES HE HAS HAD THAT PRIOR TO STAY.LEFT ARM ELEVATED AND NURSE ENCOURAGED ROM.PT INFORMED OF PLAN OF CARE AND COMMUNICATES UNDERSTANDING.PT TO TRANSFER TO TELEMETRY, ROOM 232.REPORT CALLED TO NADINE.ALL PERSONAL BELONGINGS PACKED AND TAKEN WITH THE PT.
--- NOTE | 2019-09-17 15:05 | NUR ---
REC'D REPORT FROM MOSS GATHERER APPROX 1428. PATIENT TRANPORTED TO TELE 2E ROOM 232 VIA WC AND MOSS GATHERER AT 1445. ASSESSMENT COMPLETE, VS OBTAINED, WNL WITH EXCEPTION OF BP 95/57. IN AGREEMENT WITH ASSESSMENT CHARTED EARLIER THIS SHIFT. A&OX4, ABLE TO COMMUNICATE NEEDS TO STAFF. CALL LIGHT IN REACH. HOURLY ROUNDING FOR SAFETY/NEEDS.
[2019-09-17 22:09] LABS: ADENOVIRUS Negative (Negative); INFLUENZA A Negative (Negative); INFLUENZA B Negative (Negative); METAPNEUMOVIRUS Negative (Negative); PARAINFLUENZA 1 Negative (Negative); PARAINFLUENZA 2 Negative (Negative); PARAINFLUENZA 3 Negative (Negative); RHINOVIRUS Negative (Negative); RSV A Negative (Negative); RSV B Negative (Negative)
[2019-09-18] VITALS: BP 107/45
[2019-09-18 04:00] VITALS: BP 116/53
[2019-09-18 05:27] LABS: HEMATOCRIT 36.9 % (42.0-52.0); HEMOGLOBIN 12.5 gm/dL (14.0-18.0); MCH 31.4 pg (26.0-34.0); MCHC 33.7 g/dL (28.0-37.0); MPV 8.7 fl. (7.2-11.1); RBC 3.97 mil/uL (4.50-6.00); RDW-CV 13.6 % (10.5-14.5); WBC 9.3 thou/uL (4.0-11.0)
[2019-09-18 05:33] LABS: CALCIUM 8.8 mg/dL (8.5-10.1); CREATININE 1.2 mg/dL (0.6-1.3); POTASSIUM 4.8 mmol/L (3.5-5.1)
--- NOTE | 2019-09-18 07:14 | NUR ---
RECIEVED REPORT ADN ASSUMED CARE AT 1900. VSS. CARDIAC MONITORING IN PLACE. ASSESSMENT COMPLETED CHARTED. PT UP WITH ASSIST. ON 3L NC. DENIES COMPLAINTS OF PAIN. ASSESSMENT COMPLETED CHARTED. NO ACUTE CHANGES THROUGH THE NIGHT. HOURLY ROUNDING COMPLETED AND ALL NEEDS MET
[2019-09-18 07:45] VITALS: BP 94/51
[2019-09-18 11:28] VITALS: BP 127/54
[2019-09-18 16:19] VITALS: BP 112/49
[2019-09-18 20:00] VITALS: BP 116/47
[2019-09-19] VITALS: BP 114/51
--- NOTE | 2019-09-19 02:12 | NUR ---
PT ALERT ORIENTED. STAND UP TO VOID WITH ASSIST. LEFT ARM WEAK. GROSS MOTOR MOVEMENT. O2 AT 3 LITERS NC. TELEMETRY SHOWS SR BBB. TURN Q 2 HOURS PT REFUSED TO TURN TO LEFT SIDE. PT ONLY AGREES TO RIGHT SIDE AND SITTING POSITION IN BED.
[2019-09-19 04:00] VITALS: BP 111/54
[2019-09-19 08:00] VITALS: BP 121/60
[2019-09-19 12:02] VITALS: BP 105/50
--- NOTE | 2019-09-19 13:39 | NUR ---
PT VSS, SR, 1* AV BLOCK WITH BBB, NC@2L- BASELINE- USES NOSE STRIPS TO OPEN NASAL PASSAGE, UP WITH ONE, VOIDS IN URINAL, USES BEDSIDE COMMODE. HOURLY ROUNDING PERFORMED, POSSESSIONS AND CALL LIGHT WITHIN REACH. PT REPORTS WEAKNESS IN LEFT UPPER ARM LIMITING USE, TRIPLE LUMEN PICC-BLOOD RETURN ON ALL LINES., ACCUCHECKS
--- NOTE | 2019-09-19 17:02 | NUR ---
DC planning pending inpt rehab consult/decision after more therapy notes to determine if pt could present with enough endurance for inpt rehab 3 hrs a day vs need for SNF if inpt rehab denies. SW to continue to follow to assist with finalizing safe dc plan.
[2019-09-19 17:07] VITALS: BP 106/55
[2019-09-19 20:00] VITALS: BP 139/59
[2019-09-20] VITALS: BP 115/55
--- NOTE | 2019-09-20 01:50 | NUR ---
PT ALERT ORIENTED. UP TO BSC WITH 1-2 PERSON ASSIST. DENIES PAIN. TELEMEMETRY SHOWS SR BBB. ON 2 LITERS NC HERE AND AT HOME. USING BREATH RITE STRIPS. WCTM
[2019-09-20 07:45] VITALS: BP 114/48
[2019-09-20 12:07] VITALS: BP 117/51
--- NOTE | 2019-09-20 15:05 | NUR ---
CALL TO [facility] TO CHECK ON STATUS. AWAITING CALL BACK. UPDATED JANE CABEZAS
[2019-09-20 15:59] VITALS: BP 108/52
--- NOTE | 2019-09-20 19:09 | NUR ---
ASSUMED PT CARE AT 0730, FULL ASSESMENT DONE CHARTED. PT A/O X4, DENIES PAIN, PT STATES HE IS WEAK. PT UP WITH 1 ASSIST, FALL PRECAUTIONS IN PLACE, UP TO BSC, HAD SEVERAL LOOSE STOOLS TODAY, DISCUSSED WITH AND DIXIE'D LAXATIVES. PT WORKED WITH PT, SAT IN CHAIR MOST OF AFTERNOON, REMAINS ON 2L O2, COURSE LUNGS, DENIES COUGH. VSS, SA/PVC'S/BBB ON THE MONITOR. CALLS APPROPRIALTY FOR NEEDS.
[2019-09-20 20:00] VITALS: BP 136/62
[2019-09-21] VITALS: BP 152/67
[2019-09-21 04:00] VITALS: BP 116/60
--- NOTE | 2019-09-21 04:58 | NUR ---
PT HAD C/O HEARTBURN, RECIEVED ORDERS FOR ONGOING TREATMENT. DOES HAVE WEAKNESS WITH TRANSFERS AND AMBULATION. NO OTHER CONCERNS VOICED BY PT. CURRENTLY ASLEEP WITH HOB ELEVATED, BED ALARM ON AND CALL LIGHT WITHIN REACH.
[2019-09-21 08:06] VITALS: BP 98/43
--- NOTE | 2019-09-21 12:28 | NUR ---
CONTINUE TO AWAIT [facility]. UPDATED PT/ AND SON.
--- NOTE | 2019-09-21 14:07 | EKG ---
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1930 Requested By: Debbie Spencer Order Number: [id number] Kenna MD: Jean Jaramillo Measurements Intervals [place] Rate: 70 P: 86 UT: 166 QRS: 29 QRSD: 141 T: 185 QT: 438 QTc: 473 Interpretive Statements Sinus rhythm Left bundle branch block Compared to ECG 09/15/2019 03:11:44 Left bundle-branch block now present Electronically Signed On 09-21-2019 14:06:51 CUFF TURNER by Jean Jaramillo [email or web address] <ELECTRONICALLY SIGNED> By: Jean Jaramillo MD, [facility] 09/21/19 1406 2313 2313 Jean Jaramillo MD, [facility] /EPI
[2019-09-21 16:00] VITALS: BP 103/46
[2019-09-21 16:14] VITALS: BP 98/43
[2019-09-21 20:00] VITALS: BP 132/48
[2019-09-22] VITALS: BP 110/41
[2019-09-22 04:00] VITALS: BP 103/43
--- NOTE | 2019-09-22 04:25 | NUR ---
PT ALERT ORIENTED. UP WITH 2 PERSON ASSIST. PT WOKE UP WITH LEG SPASMS, BLOATED FEELING IN ABD AND NECK PAIM. TRAMADOL GIVEN. LIGHT MASAGE TO NECK. PT BACK TO SLEEP. MED SURG STATUS. O2 AT 2 LITERS IS BASE LINE FOR HOME USE.
[2019-09-22 08:30] VITALS: BP 105/46
[2019-09-22] MEDS ORDERED: TRAMADOL 50 MG50 MG PO (11:22)
[2019-09-22] MEDS ORDERED: LIDOPATCH1 EACH TOP (11:22)
[2019-09-22] MEDS ORDERED: MUCINEX600 MG PO (11:22)
[2019-09-22] MEDS ORDERED: PREDNISONE 10 M10 MG PO (11:22)
[2019-09-22] MEDS ORDERED: IPRAT-ALBUT 0.5-3 ML INH (11:22)
[2019-09-22] MEDS ORDERED: CARVEDILOL3.125 MG PO (11:22)
[2019-09-22] MEDS ORDERED: PULMICORT0.5 MG/2 M INH (11:22)
[2019-09-22 11:57] VITALS: BP 97/46
[2019-09-22] MEDS ORDERED: HUMALOG100 UNIT/1 SUBQ (12:35)
--- NOTE | 2019-09-22 12:35 | NUR ---
[facility], informed this cm that pt was approved for inpatient rehab. this cm faxed facesheet and orders to inpatient rehab.
[2019-09-22] MEDS ORDERED: CEFDINIR300 MG PO (12:42)
[2019-09-22] MEDS ORDERED: ZOCOR 20 MG TAB20 M1 PO (12:48)
[2019-09-22 12:58] VITALS: BP 98/43
== END 2019-09-22 15:12 | DRG 208 ==
LOC: EDSEX 09:19 → M.ERS 09:19 → M.ICU 09:55 → M.TBA-ER 09:55 → M.ICU 11:57 → M.2W 09-17 14:59
PROVIDERS: Emergency Medicine Emergency Medical Services; Pediatrics; ADMIT Family Medicine
PROC: 5A1935Z Respiratory Ventilation, Less than 24 Consecutive Hours (ICD-10-PCS; principal; 2019-09-14)
PROC: 0BH17EZ Insertion of Endotracheal Airway into Trachea, Via Natural or Artificial Opening (ICD-10-PCS; principal; 2019-09-14)
DX: J96.01 Acute respiratory failure with hypoxia (principal); J15.6 Pneumonia due to other Gram-negative bacteria; G93.41 Metabolic encephalopathy; N17.0 Acute kidney failure with tubular necrosis; I21.A1 Myocardial infarction type 2; J44.1 Chronic obstructive pulmonary disease with (acute) exacerbation; R65.10 Systemic inflammatory response syndrome (SIRS) of non-infectious origin without acute organ dysfunction; I13.0 Hypertensive heart and chronic kidney disease with heart failure and stage 1 through stage 4 chronic kidney disease, or unspecified chronic kidney disease; I50.30 Unspecified diastolic (congestive) heart failure; J96.02 Acute respiratory failure with hypercapnia; E78.5 Hyperlipidemia, unspecified; N18.9 Chronic kidney disease, unspecified; K21.9 Gastro-esophageal reflux disease without esophagitis; M19.90 Unspecified osteoarthritis, unspecified site; E11.40 Type 2 diabetes mellitus with diabetic neuropathy, unspecified; I25.5 Ischemic cardiomyopathy; E11.22 Type 2 diabetes mellitus with diabetic chronic kidney disease; I44.7 Left bundle-branch block, unspecified; T88.59XA Other complications of anesthesia, initial encounter; I95.2 Hypotension due to drugs; T41.295A Adverse effect of other general anesthetics, initial encounter; I25.10 Atherosclerotic heart disease of native coronary artery without angina pectoris; E66.9 Obesity, unspecified; R53.81 Other malaise; M19.012 Primary osteoarthritis, left shoulder; I25.2 Old myocardial infarction; Y92.89 Other specified places as the place of occurrence of the external cause; Z68.31 Body mass index [BMI] 31.0-31.9, adult; Z82.49 Family history of ischemic heart disease and other diseases of the circulatory system; Z79.82 Long term (current) use of aspirin; Z99.81 Dependence on supplemental oxygen; Q89.1 Congenital malformations of adrenal gland; Z79.84 Long term (current) use of oral hypoglycemic drugs; Z79.4 Long term (current) use of insulin; Z79.899 Other long term (current) drug therapy; Z88.8 Allergy status to other drugs, medicaments and biological substances

== ENCOUNTER 2019-09-22 11:54 | Inpatient (IN) | payer OTHER ==
[~2019-09-22] VITALS: Ht 185.4 cm; Wt 95.4 kg
[~2019-09-22 11:54] MED LIST changes: +CARVEDILOL3.125 MG PO; +IPRAT-ALBUT 0.5-3 ML INH; +LIDOPATCH1 EACH TOP; +MUCINEX600 MG PO; +PREDNISONE 10 M10 MG PO; +PULMICORT0.5 MG/2 M INH; +TRAMADOL 50 MG50 MG PO
[2019-09-22] MEDS ORDERED: HUMALOG100 UNIT/1 SUBQ (12:35)
[2019-09-22] MEDS ORDERED: CEFDINIR300 MG PO (12:42)
[2019-09-22] MEDS ORDERED: ZOCOR 20 MG TAB20 M1 PO (12:48)
[2019-09-22 20:00] VITALS: BP 114/51
[2019-09-23 04:08] LABS: HEMATOCRIT 32.7 % (42.0-52.0); HEMOGLOBIN 11.4 gm/dL (14.0-18.0); MCH 31.7 pg (26.0-34.0); MCHC 34.8 g/dL (28.0-37.0); MCV 91.1 fL (80.0-100.0); MPV 7.8 fl. (7.2-11.1); RBC 3.59 mil/uL (4.50-6.00); RDW-CV 13.4 % (10.5-14.5)
[2019-09-23 04:25] LABS: CALCIUM 8.8 mg/dL (8.5-10.1); CREATININE 1.3 mg/dL (0.6-1.3); POTASSIUM 4.8 mmol/L (3.5-5.1)
[2019-09-23 08:00] VITALS: BP 108/48
[2019-09-23 19:58] VITALS: BP 91/39
[2019-09-24 08:00] VITALS: BP 114/53
[2019-09-24 08:16] VITALS: BP 114/53
[2019-09-24 19:20] VITALS: BP 126/47
[2019-09-25 09:30] VITALS: BP 104/49
[2019-09-25 19:30] VITALS: BP 117/53
[2019-09-26 04:36] LABS: CALCIUM 8.7 mg/dL (8.5-10.1); CREATININE 1.3 mg/dL (0.6-1.3); MAGNESIUM 2.2 mg/dL (1.8-2.4); POTASSIUM 4.4 mmol/L (3.5-5.1)
[2019-09-26 07:45] VITALS: BP 143/60
[2019-09-26 19:29] VITALS: BP 132/63
[2019-09-27 07:34] VITALS: BP 119/77
[2019-09-27 10:17] VITALS: BP 136/52
[2019-09-27 10:25] VITALS: BP 126/54
[2019-09-27 10:43] VITALS: BP 90/51
[2019-09-27 11:01] VITALS: BP 113/57
--- NOTE | 2019-09-27 11:57 | EKG ---
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
[2019-09-27 19:30] VITALS: BP 111/54
[2019-09-28 07:53] VITALS: BP 108/51
[2019-09-28 07:54] VITALS: BP 104/58
[2019-09-28 19:50] VITALS: BP 96/41
[2019-09-28 20:15] VITALS: BP 96/41
[2019-09-29 07:48] VITALS: BP 105/51
[2019-09-29 19:29] VITALS: BP 103/52
[2019-09-30 04:00] LABS: HEMOGLOBIN 12.2 gm/dL (14.0-18.0); MCH 31.9 pg (26.0-34.0); MCHC 34.9 g/dL (28.0-37.0); MCV 91.5 fL (80.0-100.0); MPV 7.7 fl. (7.2-11.1); RBC 3.83 mil/uL (4.50-6.00); RDW-CV 13.7 % (10.5-14.5)
[2019-09-30 04:30] LABS: CALCIUM 8.7 mg/dL (8.5-10.1); CREATININE 1.3 mg/dL (0.6-1.3); POTASSIUM 5.1 mmol/L (3.5-5.1); TOTAL BILIRUBIN 0.8 mg/dL (<0.1-1.0); TOTAL PROTEIN 5.8 g/dL (6.4-8.2)
[2019-09-30 07:44] VITALS: BP 118/70
[2019-09-30 20:00] VITALS: BP 101/44
[2019-10-01 04:05] LABS: BE 5.6 mmol/L (-2 to +3); PO2 86.5 mmHg (75.0-100.0)
[2019-10-01 04:08] LABS: PCO2 64.6 mmHg (35.0-45.0)
[2019-10-01 06:08] LABS: BE 5.4 mmol/L (-2 to +3); PO2 74.3 mmHg (75.0-100.0)
[2019-10-01 06:13] LABS: PCO2 54.8 mmHg (35.0-45.0)
[2019-10-01 08:23] VITALS: BP 115/70
[2019-10-01 18:55] VITALS: BP 122/54
[2019-10-02 08:00] VITALS: BP 132/61
--- NOTE | 2019-10-02 15:37 | CON ---
[address] [address] CONSULTATION Name: ALEIDA BOBO Room: [address] IN M.R.#: [id number] Admission: 09/22/19 Attend Phys: Napoleon Rojas MD Discharge: Date of : 01/25/[birth year] Report #: [id number] THIS REPORT FOR: //name// CC: Napoleon Ley I was asked to see this 89-year-old gentleman for chronic hypercarbic, hypoxic respiratory failure. HISTORY OF PRESENT ILLNESS: The patient has history of more than [id number]-zykx smoking. He quit smoking in . He is on oxygen 2 liters per minute via nasal cannula continuously. He has severe COPD. He was admitted to [facility] on 09/14/2019 with jjoag-gi-hxrpaxj respiratory failure. He was treated for acute exacerbation of COPD and pneumonia. He is now in rehabilitation. An ABG was done yesterday, which did show pH of 7.38, pCO2 of 54, pO2 of 74 on 1.5 liters of oxygen. His attending physician is wondering if the patient needs CPAP. He is on oxygen. He does have shortness of breath with activity, which has improved. He has occasional cough. He does have excessive daytime sleepiness and snoring, has not had any sleep study. PAST MEDICAL HISTORY: Recent acute respiratory failure as mentioned as above, COPD, oxygen dependent, coronary artery disease, status post stent placement, ischemic cardiomyopathy, diabetes mellitus, hyperlipidemia, chronic kidney disease. SOCIAL HISTORY: History of more than 619-[id number]-xlzy smoking, quit smoking in 1980s. FAMILY HISTORY: There is no history of lung disease. ALLERGIES: No known drug allergies. MEDICATIONS: Currently, he is on prednisone with taper, aspirin, finasteride, fish oil, folic acid, Lasix, metformin, Protonix, atorvastatin, Coreg, cefdinir, cholecalciferol, insulin, DuoNeb. REVIEW OF SYSTEMS: As mentioned as above, other systems otherwise negative. PHYSICAL EXAMINATION: GENERAL: This is an overweight gentleman. VITAL SIGNS: His O2 saturation on 2 liters of oxygen is 96%, respiratory rate 16, heart rate 78, blood pressure 132/61, temperature 36.5. HEENT: Normocephalic, atraumatic. Pupils are equal, round, reactive to light. There is shallow oropharynx. Nose is clear. NECK: There is no lymphadenopathy [place] [address] CONSULTATION Name: ALEIDA BOBO Room: [address] IN [facility]#: [id number] Admission: 09/22/19 Attend Phys: Napoleon Rojas MD Discharge: Date of : 01/25/[birth year] Report #: [id number] CARDIOVASCULAR: Regular rate and rhythm. PMI is nondisplaced. CHEST: Inspection is normal. LUNGS: There are few bibasilar crackles, dullness at the bases. ABDOMEN: Soft. Bowel sounds are good. There is no mass. EXTREMITIES: There is no cyanosis. LYMPHATICS: There is no lymphadenopathy. NEUROLOGIC: Alert and oriented. LABORATORY DATA: I reviewed the following lab data: Chest x-ray done on 09/27/2019 shows small left pleural effusion. ABG as mentioned as above. WBC 8, hemoglobin 12.2, platelets 117. Sodium 140, potassium 5.1, chloride 99, CO2 37, BUN 39, creatinine 1.3. Lactic acid 1.6. BNP 297. Troponin less than 0.06. IMPRESSION: 1. Chronic hypoxemic hypercarbic respiratory failure due to very severe chronic obstructive pulmonary disease and probably undiagnosed untreated obstructive sleep apnea-hypopnea syndrome. 2. Chronic obstructive pulmonary disease with recent exacerbation. 3. History of pneumonia. 4. Coronary artery disease. 5. Hypertension. 6. Diabetes mellitus. 7. Ischemic cardiomyopathy. PLAN AND RECOMMENDATIONS: 1. Titrate FiO2 to keep O2 saturation 92%. 2. Continue bronchodilator. 3. Continue prednisone with taper. 4. I do recommend a sleep study as an outpatient. Meanwhile, I will try BiPAP at bedtime to see if he can tolerate to qualify him for CPAP or BiPAP, but he would require a split night sleep study as an outpatient. 5. A 6-minute walk at the time of discharge. 6. His ABG does show compensated hypercarbia. 7. PT, OT. 8. The findings and recommendations were discussed with the patient and RN. I have answered all of the patient's questions and he understood and agreed to proceed with the plan. Thank you very much for allowing me to participate in care of this very nice gentleman. <ELECTRONICALLY SIGNED> By: Ashley Goff MD 10/02/19 1537 0918 [id number] Goff MD /katlyn
[2019-10-02 20:00] VITALS: BP 131/60
[2019-10-03 07:20] VITALS: BP 124/65
[2019-10-03 18:55] VITALS: BP 99/47
[2019-10-04] VITALS (7 sets, daily range): BP systolic 73–130; BP diastolic 39–60
[2019-10-04 14:50] LABS: CALCIUM 8.4 mg/dL (8.5-10.1); CREATININE 1.7 mg/dL (0.6-1.3); POTASSIUM 4.6 mmol/L (3.5-5.1)
[2019-10-04 15:40] LABS: HEMATOCRIT 36.7 % (42.0-52.0); HEMOGLOBIN 12.9 gm/dL (14.0-18.0); MCH 31.7 pg (26.0-34.0); MCHC 35.1 g/dL (28.0-37.0); MCV 90.4 fL (80.0-100.0); MPV 8.5 fl. (7.2-11.1); RBC 4.06 mil/uL (4.50-6.00); RDW-CV 13.7 % (10.5-14.5); WBC 6.3 thou/uL (4.0-11.0)
[2019-10-05 05:06] LABS: CALCIUM 7.6 mg/dL (8.5-10.1); CREATININE 1.3 mg/dL (0.6-1.3); POTASSIUM 3.7 mmol/L (3.5-5.1)
[2019-10-05 07:26] VITALS: BP 120/51
[2019-10-05 08:00] VITALS: BP 85/41
[2019-10-05 19:32] LABS: URINE BILIRUBIN NEGATIVE (Negative); URINE BLOOD NEGATIVE (Negative); URINE CLARITY CLEAR; URINE COLOR YELLOW; URINE GLUCOSE-RANDOM TRACE (Negative); URINE KETONES NEGATIVE (Negative); URINE LEUKOCYTES 1+ (Negative); URINE NITRITE NEGATIVE (Negative); URINE PROTEIN NEGATIVE (Negative); URINE SPECIFIC GRAVITY 1.015 (1.005-1.030)
[2019-10-05 19:46] LABS: CASTS None Seen /LPF (None Seen); CRYSTALS None Seen /LPF (None Seen); MUCUS 0-3 Light strn/LPF (None Seen); SQUAMOUS 0-3 Few /LPF (0-3)
[2019-10-05 19:47] LABS: URINE RBC 0-2 Rare /HPF (0-2); URINE WBC 6-15 Few /HPF (0-5)
[2019-10-05 20:00] VITALS: BP 110/52
[2019-10-06 07:31] VITALS: BP 141/76
[2019-10-06 07:40] VITALS: BP 90/52
[2019-10-06 09:17] VITALS: BP 90/48
[2019-10-06 11:56] VITALS: BP 101/53
--- NOTE | 2019-10-06 12:38 | EKG ---
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1930 Requested By: Napoleon Rojas Order Number: [id number] Kenna MD: Jean Jaramillo Measurements Intervals [place] Rate: 76 P: 31 AL: 147 QRS: -14 QRSD: 134 T: 150 QT: 412 QTc: 464 Interpretive Statements Sinus rhythm Left bundle branch block Compared to ECG 09/27/2019 10:34:18 Sinus arrhythmia no longer present Electronically Signed On 10-06-2019 12:38:21 [employer]IT[employer]ORS by Jean Jaramillo [email or web address] <ELECTRONICALLY SIGNED> By: Jean Jaramillo MD, [facility] 10/06/19 1238 112 19 Jean Jaramillo MD, FAC /EPI
[2019-10-06 20:00] VITALS: BP 114/59
[2019-10-07 04:35] LABS: HEMATOCRIT 35.4 % (42.0-52.0); HEMOGLOBIN 12.3 gm/dL (14.0-18.0); MCH 31.3 pg (26.0-34.0); MCHC 34.7 g/dL (28.0-37.0); MCV 90.4 fL (80.0-100.0); RBC 3.91 mil/uL (4.50-6.00); RDW-CV 13.7 % (10.5-14.5); WBC 4.2 thou/uL (4.0-11.0)
[2019-10-07 04:50] LABS: ALBUMIN 2.9 g/dL (3.4-5.0); ALKALINE PHOSPHATASE 54 U/L (46-116); ANION GAP 9 mmol/L (7-16); BUN 28 mg/dL (7-18); CALCIUM 8.2 mg/dL (8.5-10.1); CHLORIDE 97 mmol/L (98-107); CO2 33 mmol/L (21-32); CREATININE 1.5 mg/dL (0.6-1.3); GLUCOSE 176 mg/dL (70-99); MAGNESIUM 1.4 mg/dL (1.8-2.4); NT-PRO BRAIN NAT PEPTIDE 1378 pg/mL (<300); POTASSIUM 4.4 mmol/L (3.5-5.1); SGOT 16 U/L (15-37); SGPT 29 U/L (30-65); SODIUM 139 mmol/L (136-145); TOTAL BILIRUBIN 0.5 mg/dL (<0.1-1.0); TOTAL PROTEIN 6.1 g/dL (6.4-8.2); TROPONIN-I LEVEL <0.06 ng/mL (<0.06)
[2019-10-07 04:51] LABS: BE 4.2 mmol/L (-2 to +3); PCO2 VENOUS 64.8 mmHg (41.0-51.0); PO2 VENOUS 44.6 mmHg (35.0-45.0)
[2019-10-07 08:28] VITALS: BP 128/60
[2019-10-07 20:00] VITALS: BP 106/55
[2019-10-08 07:49] VITALS: BP 138/72
[2019-10-08 20:00] VITALS: BP 113/51
[2019-10-09 07:43] VITALS: BP 138/65
[2019-10-09 19:33] VITALS: BP 129/57
[2019-10-10 07:30] VITALS: BP 104/50
[2019-10-10 19:30] VITALS: BP 126/45
[2019-10-11 07:25] VITALS: BP 101/49
[2019-10-11 20:00] VITALS: BP 95/50
[2019-10-12 06:38] LABS: CALCIUM 8.5 mg/dL (8.5-10.1); CREATININE 1.3 mg/dL (0.6-1.3); POTASSIUM 4.1 mmol/L (3.5-5.1)
[2019-10-12 07:48] VITALS: BP 117/53
[2019-10-12 19:24] VITALS: BP 123/59
[2019-10-13 07:18] VITALS: BP 109/62
[2019-10-13 20:00] VITALS: BP 96/52
[2019-10-13 20:30] VITALS: BP 101/51
[2019-10-14 08:09] VITALS: BP 96/54
[2019-10-14 20:00] VITALS: BP 105/51
[2019-10-15 08:56] VITALS: BP 128/57
[2019-10-15 19:50] VITALS: BP 104/55
[2019-10-16 07:34] VITALS: BP 99/53
[2019-10-16 20:20] VITALS: BP 113/57
[2019-10-17 07:58] VITALS: BP 109/54
[2019-10-17 19:19] VITALS: BP 113/55
[2019-10-18 07:38] VITALS: BP 115/58
[2019-10-18 19:50] VITALS: BP 101/46
[2019-10-19 05:47] LABS: CALCIUM 8.1 mg/dL (8.5-10.1); CREATININE 1.1 mg/dL (0.6-1.3); POTASSIUM 3.9 mmol/L (3.5-5.1)
[2019-10-19 07:30] VITALS: BP 105/48
[2019-10-19] MEDS ORDERED: SINGULAIR 10 MG10 M1 PO (14:28)
[2019-10-19] MEDS ORDERED: KLOR-CON 10 ER10 MEQ PO (14:28)
[2019-10-19 15:16] VITALS: BP 105/48
[2019-10-19 15:41] VITALS: BP 105/48
== END 2019-10-19 17:10 | disposition home health service (06) | DRG 189 ==
LOC: M.REH 11:54
PROVIDERS: Family Medicine; Internal Medicine; Internal Medicine Pulmonary Disease; ADMIT Physical Medicine & Rehabilitation
DX: J96.01 Acute respiratory failure with hypoxia (principal); J15.6 Pneumonia due to other Gram-negative bacteria; G93.41 Metabolic encephalopathy; N17.0 Acute kidney failure with tubular necrosis; I21.4 Non-ST elevation (NSTEMI) myocardial infarction; J44.1 Chronic obstructive pulmonary disease with (acute) exacerbation; J44.0 Chronic obstructive pulmonary disease with (acute) lower respiratory infection; R65.10 Systemic inflammatory response syndrome (SIRS) of non-infectious origin without acute organ dysfunction; R53.81 Other malaise; J96.02 Acute respiratory failure with hypercapnia; T88.59XA Other complications of anesthesia, initial encounter; I95.2 Hypotension due to drugs; T41.295A Adverse effect of other general anesthetics, initial encounter; I25.10 Atherosclerotic heart disease of native coronary artery without angina pectoris; I25.5 Ischemic cardiomyopathy; E11.22 Type 2 diabetes mellitus with diabetic chronic kidney disease; E78.5 Hyperlipidemia, unspecified; N18.3 Chronic kidney disease, stage 3 (moderate); I12.9 Hypertensive chronic kidney disease with stage 1 through stage 4 chronic kidney disease, or unspecified chronic kidney disease; K21.9 Gastro-esophageal reflux disease without esophagitis; M19.90 Unspecified osteoarthritis, unspecified site; E11.40 Type 2 diabetes mellitus with diabetic neuropathy, unspecified; E66.9 Obesity, unspecified; M19.012 Primary osteoarthritis, left shoulder; M75.02 Adhesive capsulitis of left shoulder; Z99.81 Dependence on supplemental oxygen; Z68.29 Body mass index [BMI] 29.0-29.9, adult; Y92.89 Other specified places as the place of occurrence of the external cause; Z88.8 Allergy status to other drugs, medicaments and biological substances; I25.2 Old myocardial infarction; Z79.82 Long term (current) use of aspirin; Z79.4 Long term (current) use of insulin; Z79.899 Other long term (current) drug therapy; Z87.891 Personal history of nicotine dependence

== ENCOUNTER 2019-10-23 07:38 | Inpatient (IN) | payer OTHER ==
[~2019-10-23] VITALS: Ht 182.9 cm; Wt 95.6 kg
[~2019-10-23 07:38] MED LIST changes: +CEFDINIR300 MG PO; +HUMALOG100 UNIT/1 SUBQ; +KLOR-CON 10 ER10 MEQ PO; +SINGULAIR 10 MG10 M1 PO; +ZOCOR 20 MG TAB20 M1 PO
[2019-10-23 07:39] VITALS: BP 119/43
[2019-10-23 08:31] LABS: ABSOLUTE LYMPHOCYTES 0.6 thou/uL (0.8-5.3); ABSOLUTE MONOCYTES 0.3 thou/uL (0.0-1.2); ABSOLUTE NEUTROPHILS 3.4 thou/uL (1.6-8.1); BASOPHILS 0.6 %; EOSINOPHILS 0.6 %; HEMATOCRIT 36.7 % (42.0-52.0); HEMOGLOBIN 12.6 gm/dL (14.0-18.0); MCH 31.5 pg (26.0-34.0); MCHC 34.3 g/dL (28.0-37.0); MCV 91.8 fL (80.0-100.0); MONOCYTES 7.3 %; MPV 7.7 fl. (7.2-11.1); NUCLEATED RBCS 0 /100WBC; PLATELET COUNT* 86 thou/uL (150-400); POLYS 78.5 %; RBC 3.99 mil/uL (4.50-6.00); RDW-CV 13.7 % (10.5-14.5); WBC 4.4 thou/uL (4.0-11.0)
[2019-10-23 08:41] LABS: CALCIUM 8.3 mg/dL (8.5-10.1); CREATININE 1.3 mg/dL (0.6-1.3); POTASSIUM 3.7 mmol/L (3.5-5.1)
[2019-10-23 08:43] LABS: APTT 23.6 Seconds (25.0-31.3); INR 1.1; PROTIME 11.3 Seconds (9.20-11.50)
[2019-10-23 08:51] LABS: ALBUMIN 3.1 g/dL (3.4-5.0); MAGNESIUM 1.2 mg/dL (1.8-2.4); TOTAL BILIRUBIN 0.8 mg/dL (<0.1-1.0); TOTAL PROTEIN 6.1 g/dL (6.4-8.2)
[2019-10-23 11:44] VITALS: BP 97/49
--- NOTE | 2019-10-23 12:31 | NUR ---
RECEIEVED REPORT FROM ARIANA RN IN ER OF EXPECTED ADMISSION AT 1140- DX: RESP FAILURE, COPD EXACERBATION, BRONCHITIIS- PT ARRIVED TO ROOM 233 VIA CART, AX 1 TO BED- BUSINESS SERVICES SALES REPRESENTATIVE PLACED ORDERED, SR WITH BBB NOTED- PT A&O X4- CONTIENT VS INCONTINENT OF B/B- A X1 WITH TRANSFERS- DIMINISHED LUNG SOUNDS NOTED, REPORTED NON-PRODUCTIVE COUGH- VS 97.6 18 103/56 96 96% ON 2L VIA NC- ABD SOFT/NON-TEDNER, BS X4 QUADS- LAST BM REPORTED 10/22/19- IV NOTED TO RIGHT WRIST INTACT AND SL- PT REPORTS HEARING LOSS TO RIGHT EAR, AND LOSSS TO RIGHT WITH HEARING AIDE, BUT DID NOT BRING- REPORTS TO WEAR GLASSES FOR READING, BUT LEFT AT HOME- SOAR BOTTOM REPORTED WITH AREA CHECKED NOTED TO RED AND NON-BLANCHABLE, CLEANED, PIC OBTAINED AND PLACED ON CHART; MEPLEX DRESSING PLACED AND PT POSITIONED ON SIDE- BS NOTED TO BE 282 AT TIME OF ADMISSION- CALL LIGHT AND PERSONAL BELONGINGS WITH IN REACH- HOURLY ROUNDS IN PLACE R/T SAFETY/NEEDS- ALL NEEDS MET AT THIS TIME-WCTM
[2019-10-23 16:52] VITALS: BP 102/51
--- NOTE | 2019-10-23 17:12 | NUR ---
ASSUMED CARE OF PT AT 1700. VSS AT THIS TIME. PT PROVIDED WITH WEDGES FOR COMFORT FOR HIS BUTTOCKS WITH BLANCHABLE REDNESS. WILL PASS ON TO RESIN COATER THAT THE PT IS ON ELECTROLYTE PROTOCOL. WILL CONTINUE TO MONITOR AND ASSESS
[2019-10-23 20:00] VITALS: BP 94/47
[2019-10-23 22:28] VITALS: BP 89/61
[2019-10-24] VITALS: BP 95/46
[2019-10-24 03:38] VITALS: BP 122/56
--- NOTE | 2019-10-24 05:13 | NUR ---
ASSUMED CARE OF PATIENT AT APPROX 1930. ALERT AND ORIENTED X4. ASSESSMENT COMPLETED AND CHARTED. VSS ON 2 LITERS 02. COMPLAINT OF PAIN ON BOTTOM, ADDRESSED WITH TRAMADOL AND REPOSITIONING. NO OTHER COMPLAINTS THROUGHOUT THE NIGHT, PATIENT NOTED SLEEPING UPON ROUNDS. FALL PRECAUTIONS IN PLACE. CALL LIGHT WITHIN REACH. HOURLY ROUNDS COMPLETED. WILL CONTINUE WITH PLAN OF CARE.
[2019-10-24 05:56] LABS: HEMATOCRIT 32.6 % (42.0-52.0); HEMOGLOBIN 11.5 gm/dL (14.0-18.0); MCH 32.1 pg (26.0-34.0); MCHC 35.1 g/dL (28.0-37.0); MCV 91.5 fL (80.0-100.0); MPV 8.3 fl. (7.2-11.1); RBC 3.57 mil/uL (4.50-6.00); RDW-CV 13.6 % (10.5-14.5); WBC 6.5 thou/uL (4.0-11.0)
[2019-10-24 06:22] LABS: CALCIUM 8.3 mg/dL (8.5-10.1); CREATININE 1.5 mg/dL (0.6-1.3); MAGNESIUM 1.3 mg/dL (1.8-2.4); POTASSIUM 4.6 mmol/L (3.5-5.1)
[2019-10-24 08:00] VITALS: BP 122/57
--- NOTE | 2019-10-24 10:38 | EKG ---
[place] [address] ELECTROCARDIOGRAM REPORT Name: ALEIDA BOBO Room: [address] M.R.#: [id number] Admission: 10/23/19 Attend Phys: Jamila Maurer MD Discharge: Date of : 01/25/[birth year] Report #: [id number] THIS REPORT FOR: //name// [facility] ED Test Date: 2019-10-23 Test Time: 08:00:00 Pat Name: ALEIDA BOBO Department: Room: 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: : 1930 Requested By: Mazin Ngo Order Number: [id number] MD: Macario Chahal Measurements Intervals [place] Rate: 88 P: 36 NE: 141 QRS: -29 QRSD: 135 T: 141 QT: 401 QTc: 486 Interpretive Statements Sinus rhythm Atrial premature complexes Left bundle branch block Baseline wander in lead(s) V2 Compared to ECG 10/06/2019 11:20:47 Atrial premature complex(es) now present Electronically Signed On 10-24-2019 10:37:58 AVICULTURIST by Macario Chahal [email or web address] <ELECTRONICALLY SIGNED> By: Macario Chahal MD, FACC 10/24/19 1037 08 0800 Macario Chahal MD, [facility] /EPI
[2019-10-24 12:00] VITALS: BP 99/45
--- NOTE | 2019-10-24 14:51 | NUR ---
MET WITH PT, INOCENCIA, NEIGHBOR/RENTER ED AND ANOTHER FEMALE 'LIKE A DTR'. PT JUST DC'D HOME FROM INPT REHAB ON 10/19 WITH JEANIE AT HOME HH. MAREN WORKING ON SETTING UP WALKER THRU THE [facility] [phone] [id number] BUT HASN'T BEEN DELIVERED YET PER . PT IS USING HIS 'S WALKER. PT HAS HOME O2 AND NEBULIZER THRU [facility], PER ED, THE NEBULIZER HAD A 'KINK' IN THE TUBING AND PT WASN'T GETING HIS TX SINCE HE'S BEEN HOME. DISCUSSED POSSIBLE DC TODAY PER AND PT AND AND ED ALL STATED HE COULDN'T GO HOME UNTIL THEY HAD ARRANGEMENTS MADE FOR A HOSPITAL BED, A 12HR/DAY CAREGIVER AND BE ABLE TO GET HIM UP 13 STEPS TO THE HOUSE IN THE [place]. PT STATES HE'S NOT BEEN DOING WELL AT HOME SINCE DC, SLEPT IN HIS RECLINER UNTIL ABOUT 3AM AND THEN WOULD LAY DOWN IN BED BUT 'COULDN'T BREATHE' THAT IS WHAT PROMPTED HIS RETURN TO THE HOSPITAL. AND PT STATED THEY HAD A NUMBER TO A CG AND WERE TO CALL THEM TODAY BUT NEITHER ABLE TO STATE IF CG WAS FROM AGENCY OR WHEN THEY WERE TO START. KEPT STATING SHE COULDN'T HELP PT AND WANTS HIM TO GO TO A SNF, PT ADAMANTLY REFUSING TO CONSIDER SNF. HE WANTS TO GO HOME ONCE ALL IN PLACE. CALL TO RIP AT [facility], HAD TO LEAVE MESSAGE. IT IS A NATIONAL HOLIDAY AND THEY ARE NOT IN. DID GIVE NUMBER OF [facility] [phone]. SHE CONFIRMED THAT SHE HAS ARRANGED FOR A LIFELINE FOR PT'S SHE IS BLIND WELL REARRANGED THE NEBULIZER AND SECURED IT ON TABLE. SHE GAVE NUMBER FOR PT'S DTR/TIFFANY [phone], CALL PLACED BUT HAD TO LEAVE MESSAGE. WILL AWAIT CALL BACK FROM [facility] AND ATTEMPT TO ARRANGE FOR HOSPITAL BED AT THAT TIME. WILL ALSO AWAIT CALL BACK FROM DTR RE: CG ARRANGMENTS. UPDATED DR NEWTON ON ISSUES
--- NOTE | 2019-10-24 16:35 | NUR ---
WOUND NURSE: PATIENT SEEN TO ADDRESS STAGE 3 PRESSURE INJURY ON THE COCCYX WHICH MEASURES 2.5 X 0.3 X 0.2 CM. PRESENTS A FULL THICKNESS WOUND WITH EXPOSED CREAM COLORED BASEMENT MEMBRANE IN THE WOUND BED. THERE IS PERIWOUND EXCORIATION NOTED AND IS TENDER TO THE TOUCH. THERE IS SMALL AMOUNT OF SEROUS DRAINAGE NOTED. CLEANSED WITH WOUND CLEANSER AND GAUZE, APPLIED SKIN PREP TO PERIWOUND, THEN APPLIED AQUACEL AG UNDER BORDERED FOAM DRESSING. PATIENT WAS INSTRUCTED ON THE IMPORTANCE OF LIMITING SITTING TO NO MORE THAN ONE HOUR AT ANY GIVEN TIME AND SIDE TO SIDE REPOSITIONING WHEN RESTING IN BED. PATIENT STATES HE UNDERSTANDS.
--- NOTE | 2019-10-24 18:50 | NUR ---
PT OUT OF BED IN A RECLINER THE WHOLE DAY, WAFFLE CUSHION IN PLACE. WOUND NURSE CONSULTED, COCCYX DSG DONE BY WOUND NURSE. VSS, BP SOFT, ASYMPTOMATIC. ON O2 [place]IP[place] NC 2L/MIN. BM x2 TODAY. UP WITH STB ASSIST, USES WALKER.
[2019-10-24 20:00] VITALS: BP 99/48
[2019-10-25 00:54] VITALS: BP 116/61
[2019-10-25 04:00] VITALS: BP 126/60
--- NOTE | 2019-10-25 05:43 | NUR ---
ASSUMED PT CARE AT APPROX 1930. PT IS AWAKE AND ORIENTED X4. VSS ON 2L OF O2/NC. ASSESSMENT DONE AND CHARTED. PT C/O PAIN ON LEFT NECK RELIEVED BY PAIN MEDS GIVEN PER DEC. PT IS ABLE TO SLEEP MOST OF THE NIGHT. CALL LIGHT WITHIN REACH. HOURLY ROUNDING DONE FOR PT SAFETY.
--- NOTE | 2019-10-25 07:57 | NUR ---
FAXED REFERRAL TO [facility]. CALLED AND LEFT VM MESSAGE W/MANDI TO CALL ME REGARDING WHETHER THEY ACCEPT PATIENT'S VA INSURANCE AND POSSIBLE DC TODAY. [phone]; [phone]; MANDI/SANDRA [phone]
[2019-10-25 08:00] VITALS: BP 81/45
--- NOTE | 2019-10-25 08:37 | NUR ---
PER MANDI/BEE, THEY DO NOT ACCEPT VA PAYMENT. CALL TO [facility], THEY DO AND WILL CONSIDER PT. WILL NEED TO DISCUSS WITH PT RECEIVED CALL BACK FROM RIP/ADRIAN IN TRANSITION CARE. SHE STATED THAT SHE COULD REQUEST PT'S VA DR FOR THE HOSPITAL BED AND CAREGIVER ONCE DC DATE KNOWN. SHE WOULD NEED A COUPLE OF DAYS TO GET BED DELIVERED AND NEEDS FOLLOWING INFO: HT/WT, LAST PT NOTE, POINT OF CONTACT FOR DELIVERY AND WHETHER PT NEEDS RAILS OR TRAPEZE. ALSO MADE HER AWARE PT HAD NOT RECEIVED WALKER YET. SHE STATED A CG WOULD ONLY BE 2X/WK FOR A COUPLE OF HOURS. MADE HER AWARE PT IS INTERESTED IN POSSIBLE SNF NOW, SHE GAVE NUMBER FOR OFFICE OF [facility] CARE [id number]. SPOKE WITH CHRIS QUIGLEY, HE STATED THE OFFICE ASSISTED WITH THAT AND TRANFERRED CM TO [id number], HAD TO LEAVE MESSAGE
[2019-10-25] MEDS ORDERED: TRAMADOL 50 MG50 MG PO (11:09)
[2019-10-25] MEDS ORDERED: PREDNISONE 20 M20 MG PO (11:09)
[2019-10-25] MEDS ORDERED: HUMALOG100 UNIT/1 SUBQ (11:09)
--- NOTE | 2019-10-25 11:32 | NUR ---
PER MANDI/BEE, THEY DO NOT ACCEPT VA PAYMENT. CALL TO [facility], THEY WILL CONSIDER PT. SHA TO COME OUT TO VISIT. UPDATED PT, AND ED/FRIEND. SPOKE WITH RIP/ADRIAN-TRANSITION NURSE. SHE STATED THAT [facility] COULD REQUEST PT'S VA DR FOR THE HOSPITAL BED, CAREGIVER 2X/WK FOR 2HR AND WALKER WHEN DC DATE TO HOME KNOWN. THEY WILL NEED A COUPLE OF DAYS TO ARRANGE. MADE HER AWARE PT HAD NOT RECEIVED WALKER THAT WAS ORDERED. SHE ASKED THAT CONVEY INFO RE: CG AND ONLY 2D/WK. SHE IS AWARE THAT PT IS NOW CONSIDERING SNF AT DC.
[2019-10-25 14:57] VITALS: BP 81/45
--- NOTE | 2019-10-25 16:15 | NUR ---
ASSUMED PT CARE AT 0700, PT A&O X4, MAKAH, UP WITH STANDBY ASSIST AND WALKER, REMAINS ON 2LPM VIA PR, FULL ASSESSMENT CHARTED. PT DISCHARGED TO REHAB FACILITY AT APPROX 1600, EDUCATED ON ALL DISCHARGE INSTRUCTIONS INCLUDING MEDICATIONS, REPORT CALLED IN TO FACILITY NURSE. IV REMOVED, HOURLY ROUNDING COMPLETED.
== END 2019-10-25 16:00 | DRG 191 ==
LOC: M.ERS 07:38 → M.2W 09:16 → M.TBA-ER 09:16 → M.2W 09:16
PROVIDERS: Family Medicine; ADMIT Internal Medicine
DX: J44.1 Chronic obstructive pulmonary disease with (acute) exacerbation (principal); I13.0 Hypertensive heart and chronic kidney disease with heart failure and stage 1 through stage 4 chronic kidney disease, or unspecified chronic kidney disease; J96.11 Chronic respiratory failure with hypoxia; E78.5 Hyperlipidemia, unspecified; K21.9 Gastro-esophageal reflux disease without esophagitis; E11.40 Type 2 diabetes mellitus with diabetic neuropathy, unspecified; E11.22 Type 2 diabetes mellitus with diabetic chronic kidney disease; N18.3 Chronic kidney disease, stage 3 (moderate); I25.10 Atherosclerotic heart disease of native coronary artery without angina pectoris; I25.5 Ischemic cardiomyopathy; R53.81 Other malaise; M19.012 Primary osteoarthritis, left shoulder; I50.9 Heart failure, unspecified; M75.02 Adhesive capsulitis of left shoulder; L53.8 Other specified erythematous conditions; Z95.5 Presence of coronary angioplasty implant and graft; Z79.4 Long term (current) use of insulin; Z79.899 Other long term (current) drug therapy; Z79.82 Long term (current) use of aspirin; I25.2 Old myocardial infarction; Z88.8 Allergy status to other drugs, medicaments and biological substances; Z87.891 Personal history of nicotine dependence; Z99.81 Dependence on supplemental oxygen

== ENCOUNTER 2019-10-31 11:13 | Inpatient (IN) | payer OTHER ==
[~2019-10-31] VITALS: Ht 182.9 cm; Wt 90.9 kg
[~2019-10-31 11:13] MED LIST changes: +PREDNISONE 20 M20 MG PO
[2019-10-31 11:14] VITALS: BP 119/55
[2019-10-31] MEDS ORDERED: SANTYL OINTMENT30 G1 TOP (11:35)
[2019-10-31] MEDS ORDERED: IPRAT-ALBUT 0.5-3 ML INH (11:36)
[2019-10-31] MEDS ORDERED: MILK OF MA400 MG/5 M PO (11:36)
[2019-10-31] MEDS ORDERED: LANTUSSOLASTAR SUBQ (11:36)
[2019-10-31] MEDS ORDERED: PROAIR HFA8.5 GM INH (11:36)
[2019-10-31] MEDS ORDERED: BISACODYL1 GM RECTAL (11:37)
[2019-10-31] MEDS ORDERED: BIOFREEZE118 ML TOP (11:37)
[2019-10-31] MEDS ORDERED: ACETAMINOPHEN120 MG RECTAL (11:38)
[2019-10-31 11:45] LABS: HEMATOCRIT 37.2 % (42.0-52.0); HEMOGLOBIN 12.9 gm/dL (14.0-18.0); MCHC 34.8 g/dL (28.0-37.0); MPV 8.4 fl. (7.2-11.1); NUCLEATED RBCS 0 /100WBC; PLATELET COUNT* 125 thou/uL (150-400); RBC 4.05 mil/uL (4.50-6.00); RDW-CV 13.9 % (10.5-14.5); WBC 7.6 thou/uL (4.0-11.0)
[2019-10-31 11:55] LABS: APTT 23.2 Seconds (25.0-31.3); CALCIUM 8.8 mg/dL (8.5-10.1); CREATININE 1.4 mg/dL (0.6-1.3); INR 1.1; POTASSIUM 4.2 mmol/L (3.5-5.1); PROTIME 11.1 Seconds (9.20-11.50)
[2019-10-31 12:06] LABS: ALBUMIN 3.2 g/dL (3.4-5.0); MAGNESIUM 1.7 mg/dL (1.8-2.4); TOTAL BILIRUBIN 0.8 mg/dL (<0.1-1.0); TOTAL PROTEIN 6.2 g/dL (6.4-8.2)
[2019-10-31 12:25] LABS: ABSOLUTE LYMPHOCYTES 0.2 thou/uL (0.8-5.3); ABSOLUTE NEUTROPHILS 7.4 thou/uL (1.6-8.1); PLATELET ESTIMATE ADEQUATE
[2019-10-31 13:25] LABS: INFLUENZA A ANTIGEN Negative (Negative); INFLUENZA B ANTIGEN Negative (Negative)
--- NOTE | 2019-10-31 14:41 | EKG ---
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[place] : 1930 Requested By: Mazin Ngo Order Number: [id number] MD: Macario Chahal Measurements Intervals [place] Rate: 72 P: 47 MD: 159 QRS: -19 QRSD: 127 T: 168 QT: 413 QTc: 453 Interpretive Statements Sinus rhythm Atrial premature complex nonspecific t wave changes Compared to ECG 10/23/2019 08:00:00 No significant changes Electronically Signed On 10-31-2019 14:40:16 BRIM CUTTER by Macario Chahal [email or web address] <ELECTRONICALLY SIGNED> By: aMcario Chahal MD, [facility] 10/31/19 1440 1123 [id number] Macario Chahal MD, [facility] /EPI
[2019-10-31 17:23] VITALS: BP 112/55
[2019-10-31 17:42] VITALS: BP 143/71
[2019-10-31] MEDS ORDERED: SINGULAIR 10 MG10 MG PO (18:59)
[2019-10-31] MEDS ORDERED: OMEPRAZOLE 20 M20 M1 PO (19:00)
[2019-10-31] MEDS ORDERED: MUCINEX1200 MG PO (19:01)
[2019-10-31] MEDS ORDERED: DESOWEN60 GM TOP (19:02)
[2019-10-31 20:00] VITALS: BP 107/45
[2019-11-01] VITALS (8 sets, daily range): BP systolic 85–134; BP diastolic 42–63
[2019-11-01 05:31] LABS: HEMATOCRIT 34.6 % (42.0-52.0); HEMOGLOBIN 12.2 gm/dL (14.0-18.0); MCH 31.8 pg (26.0-34.0); MCHC 35.3 g/dL (28.0-37.0); MCV 90.1 fL (80.0-100.0); MPV 8.1 fl. (7.2-11.1); RBC 3.84 mil/uL (4.50-6.00); RDW-CV 13.6 % (10.5-14.5); WBC 6.1 thou/uL (4.0-11.0)
[2019-11-01 06:02] LABS: CALCIUM 8.5 mg/dL (8.5-10.1); CREATININE 1.6 mg/dL (0.6-1.3); POTASSIUM 4.5 mmol/L (3.5-5.1); TROPONIN-I LEVEL 0.08 ng/mL (<0.06)
[2019-11-01 13:48] LABS: BE 4.8 mmol/L (-2 to +3); PO2 103.8 mmHg (75.0-100.0); pH 7.363 (7.340-7.450)
[2019-11-01 13:50] LABS: PCO2 56.6 mmHg (35.0-45.0)
[2019-11-02] VITALS (7 sets, daily range): BP systolic 87–130; BP diastolic 31–71
[2019-11-02 04:31] LABS: BE 9.7 mmol/L (-2 to +3); PO2 83.6 mmHg (75.0-100.0); pH 7.408 (7.340-7.450)
[2019-11-02 04:32] LABS: PCO2 58.8 mmHg (35.0-45.0)
[2019-11-02 06:47] LABS: CALCIUM 8.4 mg/dL (8.5-10.1); CREATININE 1.3 mg/dL (0.6-1.3); POTASSIUM 4.1 mmol/L (3.5-5.1)
[2019-11-03] VITALS: BP 130/69
[2019-11-03 04:00] VITALS: BP 108/59
[2019-11-03 12:00] VITALS: BP 87/30
--- NOTE | 2019-11-03 15:10 | CON ---
[facility] [address] [place] [address] CONSULTATION Name: ALEIDA BOBO Room: [address] IN M.R.#: [id number] Admission: 10/31/19 Attend Phys: Luke Darling, Discharge: Date of : [birth year] Report #: [id number] THIS REPORT FOR: //name// CC: Stanley Darling DATE OF SERVICE: 11/01/2019 INDICATION: Elevated troponin. HISTORY OF PRESENT ILLNESS: The patient is a very pleasant 89-year-old white male with history of coronary artery disease with percutaneous coronary intervention remotely. He has an ischemic myopathy with evidence of prior anterior wall infarct by noninvasive studies last year. He presented to the hospital with recurrent respiratory distress. He has a history of COPD with multiple recent admissions for respiratory distress. In this setting, he had a mildly elevated troponin. He is not having chest pain, tightness or pressure. He denies orthopnea. He states he has been having increased shortness of breath over the last several days and has been on oxygen for the last 2 months. After his last hospitalization here, he was transferred to inpatient rehabilitation and then [place]. He was transferred from [place] back here with acute COPD exacerbation again. He was not having fevers. He is not having a productive cough. He is without other complaint. PAST MEDICAL HISTORY: 1. Coronary artery disease with remote percutaneous coronary intervention. 2. Ischemic cardiomyopathy with ejection fraction of approximately 25%-30% and evidence of prior myocardial infarction. 3. Chronic obstructive pulmonary disease. 4. GERD. 5. Type 2 diabetes mellitus. 6. Chronic renal insufficiency. 7. Hyperlipidemia. 8. History of anemia. 9. Adrenal insufficiency. CURRENT MEDICATIONS: Tylenol p.r.n., albuterol 2 puffs q.4-6 hours p.r.n., aspirin 81 mg daily, bisacodyl 10 mg rectally p.r.n., Pulmicort 0.5 mg b.i.d., carvedilol 3.125 mg b.i.d., collagenase 30 grams tube apply topically daily, B12 1000 mcg tablet daily, desonide cream 15 grams topically b.i.d., fish oil 1000 mg daily, Colace 100 mg at bedtime, Proscar 5 mg daily, folic acid 400 mcg daily, furosemide 40 mg daily, guaifenesin 1200 mg b.i.d., Lantus 6 units subcutaneous at bedtime, Combivent inhaler as directed, milk of magnesia 30 mL at bedtime p.r.n., magnesium oxide 400 mg b.i.d., melatonin 3 mg at bedtime, Biofreeze topically 4 times a day, Glucophage 1000 mg b.i.d., Singulair 10 mg at bedtime, omeprazole 40 mg daily, MiraLax 17 grams daily, potassium chloride [address] [place] [address] CONSULTATION Name: ALEIDA BOBO Room: [address]#: [id number] Admission: 10/31/19 Attend Phys: Luke Darling, Discharge: Date of : [birth year] Report #: [id number] mEq daily, Zocor 20 mg at bedtime, tramadol 50 mg q. 4 hours p.r.n. ALLERGIES: LISINOPRIL. FAMILY HISTORY: The patient's father had heart attack at age 85. SOCIAL HISTORY: The patient is . He had been living with his in [place]. He is retired. He does not smoke or drink alcohol. PHYSICAL EXAMINATION: VITAL SIGNS: Blood pressure 134/48, pulse 72 and regular. GENERAL: This is a pleasant elderly male, who is in no distress. Mood and affect appropriate. HEENT: Extraocular muscles intact. Mucous membranes appear dry. NECK: Shows no obvious jugular venous distention. There are no carotid bruits. CHEST: Reveals diminished breath sounds. I do not appreciate wheezes or rales. CARDIOVASCULAR: Reveals a regular rhythm without gallop or murmur. ABDOMEN: Reveals normal bowel sounds. The abdomen is soft and nontender. EXTREMITIES: Shows no edema. SKIN: Dry. DIAGNOSTIC DATA: A 12-lead EKG shows sinus rhythm with left bundle-branch block. Labs are reviewed. NT-proBNP is 3000. Troponins are 0.07 and 0.08. IMPRESSION AND RECOMMENDATIONS: 1. Elevated troponin, likely due to a type 2 myocardial infarction. He is not having symptoms to suggest acute coronary syndrome. I suspect this is related to respiratory distress. I would continue conservative management at this time. 2. Elevated NT-proBNP consistent with mild volume overload. He is not having acute symptoms. I would give him a single bolus of IV Lasix and follow clinically. 3. History of ischemic cardiomyopathy generally well compensated on minimal medications as outlined above. I will make no adjustments in this at present. 4. Respiratory distress secondary to chronic obstructive pulmonary disease exacerbation per primary physician and Pulmonology. 5. Diabetes per primary physician. 6. Dyslipidemia. Continue simvastatin at low dose. 7. Chronic left bundle-branch block. 8. Chronic renal insufficiency, presently appears stable. <ELECTRONICALLY SIGNED> By: Perry Goznales MD, [facility] 11/03/19 1510 1508 [id number] Gonzales MD, [facility] /nt
[2019-11-03 15:23] LABS: ABSOLUTE LYMPHOCYTES 0.3 thou/uL (0.8-5.3); ABSOLUTE MONOCYTES 0.4 thou/uL (0.0-1.2); ABSOLUTE NEUTROPHILS 7.6 thou/uL (1.6-8.1); BASOPHILS 0.2 %; HEMATOCRIT 36.5 % (42.0-52.0); HEMOGLOBIN 12.7 gm/dL (14.0-18.0); LYMPHOCYTES 3.5 %; MCH 31.8 pg (26.0-34.0); MCHC 34.7 g/dL (28.0-37.0); MCV 91.7 fL (80.0-100.0); MONOCYTES 4.5 %; MPV 8.3 fl. (7.2-11.1); NUCLEATED RBCS 0 /100WBC; PLATELET COUNT* 160 thou/uL (150-400); POLYS 91.8 %; RBC 3.98 mil/uL (4.50-6.00); RDW-CV 13.9 % (10.5-14.5); WBC 8.3 thou/uL (4.0-11.0)
[2019-11-03 15:31] LABS: CALCIUM 8.6 mg/dL (8.5-10.1); CREATININE 1.5 mg/dL (0.6-1.3); POTASSIUM 4.5 mmol/L (3.5-5.1)
[2019-11-03 16:00] VITALS: BP 77/38
[2019-11-03 19:45] VITALS: BP 115/47
[2019-11-04] VITALS: BP 137/90
[2019-11-04 05:27] VITALS: BP 137/67
[2019-11-04 08:00] VITALS: BP 154/54
[2019-11-04 11:00] VITALS: BP 102/47
[2019-11-04] MEDS ORDERED: PREDNISONE 5 MG5 M1 PO (14:01)
[2019-11-04] MEDS ORDERED: BACTRIM DS TAB1 EAC1 PO (14:02)
[2019-11-04 14:08] VITALS: BP 102/47
[2019-11-04] MEDS ORDERED: TUMS300 MG PO (14:31)
[2019-11-04] MEDS ORDERED: HYDROCORTISONE30 GM TOP (14:32)
[2019-11-04] MEDS ORDERED: ASPERCREME1 EACH TOP (14:32)
[2019-11-04] MEDS ORDERED: HUMALOG100 UNIT/1 SUBQ (14:50)
== END 2019-11-04 15:13 | DRG 280 ==
LOC: M.ERS 11:13 → M.2W 13:43 → M.TBA-ER 13:43 → M.2W 17:32
PROVIDERS: Family Medicine; Internal Medicine; ADMIT Family Medicine
DX: I21.A1 Myocardial infarction type 2 (principal); J96.02 Acute respiratory failure with hypercapnia; L89.153 Pressure ulcer of sacral region, stage 3; J44.1 Chronic obstructive pulmonary disease with (acute) exacerbation; J44.0 Chronic obstructive pulmonary disease with (acute) lower respiratory infection; I13.0 Hypertensive heart and chronic kidney disease with heart failure and stage 1 through stage 4 chronic kidney disease, or unspecified chronic kidney disease; E11.22 Type 2 diabetes mellitus with diabetic chronic kidney disease; E78.5 Hyperlipidemia, unspecified; K21.9 Gastro-esophageal reflux disease without esophagitis; M19.90 Unspecified osteoarthritis, unspecified site; E11.40 Type 2 diabetes mellitus with diabetic neuropathy, unspecified; J40 Bronchitis, not specified as acute or chronic; I25.10 Atherosclerotic heart disease of native coronary artery without angina pectoris; I25.5 Ischemic cardiomyopathy; I44.7 Left bundle-branch block, unspecified; N18.3 Chronic kidney disease, stage 3 (moderate); M19.012 Primary osteoarthritis, left shoulder; M19.079 Primary osteoarthritis, unspecified ankle and foot; L51.9 Erythema multiforme, unspecified; I50.9 Heart failure, unspecified; Z79.899 Other long term (current) drug therapy; Z87.01 Personal history of pneumonia (recurrent); I25.2 Old myocardial infarction; Z79.82 Long term (current) use of aspirin; Z95.5 Presence of coronary angioplasty implant and graft; Z88.8 Allergy status to other drugs, medicaments and biological substances